=== PATIENT | female | born 1945 | race Caucasian/White ===

== ENCOUNTER 2018-09-08 11:20 | Day surgery (SDC) | payer MEDICARE, OTHER, SELFPAY ==
[2018-09-08] MEDS: PROPARACAINE 0.5% OPHTH SOL 2 DROPS EYE-OP (11:47)
[2018-09-08 11:52] VITALS: BP 198/87; PULSE 60; RESP 15; TEMP 36.4; O2SAT 100; BMI 32.8
[2018-09-08] MEDS: CATARACT EYE COMPOUND (10 DROPS/SYRINGE) 3 DROPS EYE-OP (11:55)
--- NOTE | 2018-09-08 12:04 | SUR.PREOP ---
Recieved report from Elodia Willingham RN and assumed care of Ms. Contreras.
--- NOTE | 2018-09-08 12:17 | P.OP_ITS ---
Operative Date/Time/Diagnoses Pre-op diagnosis: Nuclear cataract right eye Procedure & Clinicians Procedure: Cataract Surgery Same procedure as scheduled: Yes Surgeon: Je Au Anesthesia Type: MAC +/- and Sedation Operative Notes Procedure in detail: Patient brought to the operating suite. Tetracaine drops placed in the right eye. Patient was prepped and draped in sterile manner. Wire lid speculum was placed in the eye. Betadine drops were placed on the eye. This was irrigated. Lidocaine jelly was placed on the eye. A paracentesis port was created with a side-port blade. 0.1 mL 1% preservative free lidocaine was injected into the anterior chamber. The anterior chamber was deepened with viscoelastic. 2.6 mm keratome was used to create a temporal clear corneal incision. Cystotome and Utrata forceps were used to create continuous tear capsulorrhexis. Balanced salt solution was used to hydro dissect the nucleus. The phacoemulsification handpiece was inserted and the nucleus was removed using the stop and chop technique. The irrigation aspiration handpiece was inserted and the remaining cortex was removed. Anterior chamber was deepened with viscoelastic. An Lamb ZCB00 intraocular lens with a power of 22.0 was injected into the capsular bag. Irrigation aspiration handpiece was inserted and the remaining viscoelastic was removed. Incision was hydrated with balanced salt solution and found to be leak free with pressure with Weck- Ally sponges. 0.1 mL Vigamox injected anterior chamber. 0.3 mL Kenalog 10 mg was injected subconjunctivally. Lid speculum was removed. The patient left the operating room in excellent condition. Complications: none Condition: stable Disposition: same day surgery
--- NOTE | 2018-09-08 12:17 | P.OP.PRE_ITS ---
Pre-operative Note Interval Note Changes: No
--- NOTE | 2018-09-08 12:17 | PM.PREOP ---
Pre-operative Note Interval Note Changes: No
--- NOTE | 2018-09-08 12:21 | SUR.OPER ---
Supine on eye stretcher, head on extension cradle secured with tape. Arms tucked at sides with blanket. Pillow under knees.
[2018-09-08] MEDS: TRIAMCINOLONE 50 MG/5 ML VIAL INJ (12:26)
[2018-09-08] MEDS: PHENYLEPHRINE/LIDOCAINE VIAL (OR) 0.2 ML EYE-OP (12:26)
[2018-09-08] MEDS: MOXIFLOXACIN OPHTH DROPS 3 ML BOTTLE 2 DROPS INJ (12:26)
[2018-09-08] MEDS: LIDOCAINE JELLY 2% 5 ML 1 APPLIC TOP (12:27)
[2018-09-08] MEDS: CHONDROIDTIN/SOD HYALURONATE 1.05 ML SYRINGE INTRAOCULA (12:27)
[2018-09-08] MEDS: BALANCED SALT IRRIG SOLN NO.2 500 ML, EPINEPHrine 1 MG IRR (12:27)
[2018-09-08] MEDS: TETRACAINE 0.5% OPHTH DROPS 15 ML 2 DROPS EYE-RIGHT (12:27)
[2018-09-08 12:50] VITALS: BP 161/81; PULSE 52; RESP 18; TEMP 36.1; O2SAT 99
== END 2018-09-08 12:56 ==
LOC: OR 11:25
PROVIDERS: PCP Family Medicine; Visit Provider Ophthalmology
DX: H25.11 Age-related nuclear cataract, right eye (principal)
CPT/HCPCS: J0171; J2250; J3010; J3301

== ENCOUNTER 2018-10-06 10:26 | Day surgery (SDC) | payer MEDICARE, OTHER, SELFPAY ==
[2018-10-06] MEDS: PROPARACAINE 0.5% OPHTH SOL 2 DROPS EYE-OP (10:48)
[2018-10-06] MEDS: CATARACT EYE COMPOUND (10 DROPS/SYRINGE) 3 DROPS EYE-OP (10:55)
[2018-10-06 10:56] VITALS: BMI 33.3
[2018-10-06 11:11] VITALS: BP 150/76; PULSE 74; RESP 15; TEMP 36; O2SAT 100
--- NOTE | 2018-10-06 11:56 | PM.PREOP ---
Pre-operative Note Interval Note Changes: No
--- NOTE | 2018-10-06 11:56 | P.OP.PRE_ITS ---
Pre-operative Note Interval Note Changes: No
--- NOTE | 2018-10-06 11:59 | P.OP_ITS ---
Operative Date/Time/Diagnoses Pre-op diagnosis: Nuclear Cataract Left eye Post-op diagnosis: same Procedure & Clinicians Surgeon: Je Au Anesthesia Type: MAC +/- and Sedation Operative Notes Procedure in detail: Patient brought to the operating suite. Tetracaine drops placed in the left eye. Patient was prepped and draped in sterile manner. Wire lid speculum was placed in the eye. Betadine drops were placed on the eye. This was irrigated. Lidocaine jelly was placed on the eye. A paracentesis port was created with a side-port blade. 0.1 mL 1% preservative free lidocaine was injected into the anterior chamber. The anterior chamber was deepened with viscoelastic. 2.6 mm keratome was used to create a temporal clear corneal incision. Cystotome and Utrata forceps were used to create continuous tear capsulorrhexis. Balanced salt solution was used to hydro dissect the nucleus. The phacoemulsification handpiece was inserted and the nucleus was removed using the stop and chop technique. The irrigation aspiration handpiece was inserted and the remaining cortex was removed. Anterior chamber was deepened with viscoelastic. An Lamb ZCB00 intraocular lens with a power of 21.5 was injected into the capsular bag. Irrigation aspiration handpiece was inserted and the remaining viscoelastic was removed. Incision was hydrated with balanced salt solution and found to be leak free with pressure with Weck- Ally sponges. 0.1 mL Vigamox injected anterior chamber. 0.3 mL Kenalog 10 mg was injected subconjunctivally. Lid speculum was removed. The patient left the operating room in excellent condition. Complications: none Condition: stable Disposition: same day surgery
--- NOTE | 2018-10-06 12:12 | SUR.OPER ---
Supine on eye stretcher, head on extension cradle secured with tape. Arms tucked at sides with blanket. Pillow under knees.
[2018-10-06] MEDS: CHONDROIDTIN/SOD HYALURONATE 1.05 ML SYRINGE INTRAOCULA (12:14)
[2018-10-06] MEDS: LIDOCAINE JELLY 2% 5 ML 1 APPLIC TOP (12:14)
[2018-10-06] MEDS: MOXIFLOXACIN OPHTH DROPS 3 ML BOTTLE 2 DROPS INJ (12:14)
[2018-10-06] MEDS: TETRACAINE 0.5% OPHTH DROPS 15 ML 2 DROPS EYE-LEFT (12:15)
[2018-10-06] MEDS: TRIAMCINOLONE 50 MG/5 ML VIAL INJ (12:15)
[2018-10-06] MEDS: PHENYLEPHRINE/LIDOCAINE VIAL (OR) 0.2 ML EYE-OP (12:15)
[2018-10-06] MEDS: BALANCED SALT IRRIG SOLN NO.2 500 ML, EPINEPHrine 1 MG IRR (12:16)
[2018-10-06 12:24] VITALS: BP 147/87; PULSE 52; RESP 16; TEMP 36.2; O2SAT 100
[2018-10-06] MEDS: ACETAMINOPHEN 325 MG TABLET PO ×2 (12:33→12:40)
== END 2018-10-06 12:42 | disposition home or self-care (01) ==
PROVIDERS: PCP Family Medicine; Visit Provider Ophthalmology
DX: H25.12 Age-related nuclear cataract, left eye (principal); G40.909 Epilepsy, unspecified, not intractable, without status epilepticus
CPT/HCPCS: J0171; J2250; J3010; J3301

== ENCOUNTER 2018-10-08 17:41 | Emergency (ER) | payer MEDICARE, OTHER, SELFPAY ==
[2018-10-08 17:50] VITALS: PULSE 65; RESP 14; TEMP 36.4; O2SAT 100; BMI 33.3
--- NOTE | 2018-10-08 17:54 | ED.SOB ---
HPI - SOB/Dyspnea <Smitha Vee PA-C - Last Filed: 10/08/18 21:09> General Chief Complaint: Shortness of Breath/Dyspnea Stated Complaint: SOB, Dizzy, Faint Time Seen by Provider: 10/08/18 17:54 Source: patient and family Mode of arrival: ambulatory Limitations: no limitations History of Present Illness this 73-year-old female comes in due to worsening dyspnea. She states she has had intermittent shortness of breath, which she describes as an air hunger sensation for about 2 months, it has been more persistent in the last week. She states that in addition to persistent air hunger today, she also feels a fullness along her chest and lower rib area and pressure in the diaphragm area. She denies any hanh chest pain. She denies any wheezing or hanh shortness of breath. She states that she has been going about her usual activities despite the symptoms for the last couple of months. She states that she has a long history of neuropathic cough and she does feel like this has been worse in the last couple of months, still a dry cough. She denies any fever, chills, sweats. She denies any wheeze. She denies any nausea vomiting, or hanh abdominal pain. She states that she has had a little bit of right lower extremity edema since age 24 when she is on her feet for a while, and that is unchanged. She denies any pain in her arms or legs, nor jaw pain. she states that her losartan was changed to b.i.d. from 1 dose daily about 10 days ago and she does think this might correlate with some of the symptoms. She denies any other medication changes Related Data Home Medications Medication Instructions Recorded Confirmed cetirizine [Zyrtec] 20 mg PO BID 09/08/18 10/08/18 clonidine HCl 0.1 mg PO BID 09/08/18 10/08/18 fluticasone [Flonase Allergy 1 spray INTRANASAL DAILY 09/08/18 10/08/18 Relief] calcium carbonate [Calcium 500] 500 mg PO TID 10/06/18 10/08/18 losartan 50 mg PO BID 10/06/18 10/08/18 multivitamin 1 cap PO QAM 10/06/18 10/06/18 oxybutynin chloride 2.5 mg PO BID 10/06/18 10/08/18 carbamazepine [Epitol] 200 mg PO QID 10/08/18 10/08/18 Allergies Allergy/AdvReac Type Severity Reaction Status Date / Time primidone [From Mysoline] Allergy Mild Rash Verified 10/08/18 17:50 Review of Systems <TRAE Allen Last Filed: 10/08/18 21:09> Review of Systems All systems reviewed & are unremarkable except as noted in HPI and below PFSH <TRAE Allen Last Filed: 10/08/18 21:09> Comment: never smoker Exam <TRAE Allen Last Filed: 10/08/18 21:09> Narrative Exam Narrative: GENERAL APPEARANCE: Patient sitting comfortably, in no distress. HEENT: PERRL, EOMI, normal oropharynx with a little PND NECK/THYROID: Neck supple, no JVD, no masses. LUNGS: Clear to auscultation bilaterally. CHEST: No tenderness to palpation HEART: Regular rate and rhythm without murmur, normal S1, S2, no S3 or S4. ABDOMEN: Soft, NT, ND, + BS x 4 quadrants EXTREMITIES: No cyanosis or edema. No calf tenderness NEUROLOGIC: Alert and oriented, normal speech, gait and coordination. Initial Vital Signs Initial Vital Signs: Vital Signs Temperature 97.5 F L 10/08/18 17:50 Pulse Rate 65 10/08/18 17:50 Respiratory Rate 14 10/08/18 17:50 Pulse Oximetry 100 10/08/18 17:50 <Vikash Martin DO - Last Filed: 10/08/18 23:14> Initial Vital Signs Initial Vital Signs: Vital Signs Temperature 97.5 F L 10/08/18 17:50 Pulse Rate 65 10/08/18 17:50 Respiratory Rate 14 10/08/18 17:50 Pulse Oximetry 100 10/08/18 17:50 Scores <TRAE Allen Last Filed: 10/08/18 21:09> HEART Score Heart Score history: Slightly Suspicious Heart Score EKG: Normal Heart Score Age: > or = 65 years old Heart Score risk factors: 1-2 risk factors Heart Score troponin: < or = to normal limit Heart Score Total: 3 Course <TRAE Allen Last Filed: 10/08/18 21:09> Additional Information: patient was feeling comfortable during her stay. Reviewed findings with Dr. Martin as she has a heart risk score of due to age and history of hyperlipidemia and hypertension. She has had gradual onset of symptoms, worsening in the last week shortly after dose change in her losartan. This also correlates with increase in her chronic cough. He agreed reasonable to discharge patient for follow-up with her PCP given lack of acute findings on workup today. she will call PCP 1st thing tomorrow for follow-up and return in the interim if any worsening symptoms. She will cut her losartan in half while waiting for follow-up appointment. Advised to discuss with PCP whether to do cardiac stress test given her risk factors Orders Ordered: ED Orders 10/08/18 17:53 EKG-12 Lead Stat 10/08/18 18:00 B Type Natriuretic Peptide Stat Basic Metabolic Panel Stat Complete Blood Count AUTO DIFF Stat D Dimer Stat Troponin & CK Cardiac Panel Stat 10/08/18 18:05 XR chest 2V Stat Discontinued Medications Albuterol (Ventolin) 2.5 mg INH NOW ONE Stop: 10/08/18 18:06 Last Admin: 10/08/18 18:08 Dose: 2.5 mg Vital Signs - 8 hr 10/08/18 17:50 10/08/18 18:08 10/08/18 19:28 Temperature 97.5 F L Pulse Rate 65 60 66 Respiratory Rate 14 17 16 Blood Pressure Blood Pressure [Right Arm] 183/76 H Pulse Oximetry 100 97 100 10/08/18 20:08 Temperature Pulse Rate 62 Respiratory Rate 15 Blood Pressure 182/76 H Blood Pressure [Right Arm] Pulse Oximetry 100 <Vikash Martin, - Last Filed: 10/08/18 23:14> Orders Ordered: ED Orders 10/08/18 17:53 EKG-12 Lead Stat 10/08/18 18:00 B Type Natriuretic Peptide Stat Basic Metabolic Panel Stat Complete Blood Count AUTO DIFF Stat D Dimer Stat Troponin & CK Cardiac Panel Stat 10/08/18 18:05 XR chest 2V Stat Discontinued Medications Albuterol (Ventolin) 2.5 mg INH NOW ONE Stop: 10/08/18 18:06 Last Admin: 10/08/18 18:08 Dose: 2.5 mg Vital Signs - 8 hr 10/08/18 17:50 10/08/18 18:08 10/08/18 19:28 Temperature 97.5 F L Pulse Rate 65 60 66 Respiratory Rate 14 17 16 Blood Pressure Blood Pressure [Right Arm] 183/76 H Pulse Oximetry 100 97 100 10/08/18 20:08 Temperature Pulse Rate 62 Respiratory Rate 15 Blood Pressure 182/76 H Blood Pressure [Right Arm] Pulse Oximetry 100 MDM - SOB/Dyspnea <Smitha Vee PA-C - Last Filed: 10/08/18 21:09> Lab Data Attestation: I reviewed the patient's lab results. Result diagrams: 10/08/18 18:00 10/08/18 18:00 Lab Results 10/08/18 10/08/18 10/08/18 Range/Units 18:00 18:00 18:00 WBC 6.9 (4.5-11.0) X10^3/uL RBC 4.40 (4.0-5.2) X10^6/uL Hgb 14.2 (12.0-16.0) g/dL Hct 41.2 (36-46) % MCV 93.6 (80-100) fL MCH 32.3 (26-34) PG MCHC 34.5 (30-36) % RDW 12.7 (11.6-14.8) % Plt Count 228 (150-400) X10^3/uL Neut % (Auto) 51.9 (50-75) % Lymph % (Auto) 36.9 (25-40) % [place] % (Auto) 8.7 (3-14) % Eos % (Auto) 1.8 L (2-4) % Baso % (Auto) 0.7 (0-2) % Neut # (Auto) 3600 (2301-8803) /uL D-Dimer < 200 (<230) ng/mL Sodium 130 L (137-145) mmol/L Potassium 4.0 (3.4-5.1) mmol/L Chloride 95 L (98-107) mmol/L Carbon Dioxide 24 (22-32) mmol/L BUN 19 H (7-17) mg/dL Creatinine 0.60 (0.52-1.04) mg/dL Estimated GFR > 60.0 (>60) mL/min BUN/Creatinine Ratio 31.7 H (6-22) Glucose 105 (80-110) mg/dL Calcium 9.8 (8.4-10.2) mg/dL Total Creatine Kinase 55 (30-135) U/L CK-MB (CK-2) TNP CK-MB (CK-2) Rel Index TNP Troponin I 0.013 (0.01-0.034) ng/mL B-Natriuretic Peptide 130.0 H (<100) Urine Dip Bedside Urine Glucose Negative Bedside Urine Bilirubin - Negative Bedside Urine Ketone + 15 Urine Specific [place] 1.015 Bedside Urine Occult Blood - Negative Bedside Urine pH 7.0 Bedside Urine Protein - Negative Bedside Urine Urobilinogen - Negative Bedside Urine Nitrite - Negative Bedside Urine Leukocytes - Negative Esterase Imaging Data Chest x-ray: Radiologist's impression: [address] [address] XRay Report Signed Patient: Junie Contreras LMR#: [id number] : 5Acct:[id number] Age/Sex: 73 / FDate of Service: 10/08/18 Loc: ED Accession Number: [id number] Procedure: XR chest 2V Ordering Provider: Smitha Vee P.A-C PROCEDURE: XR CHEST 2V INDICATIONS: dyspnea, cough TECHNIQUE: 2 views of the chest were acquired. COMPARISON: None. FINDINGS: Surgical changes and devices: None. Lungs and pleura: No pleural effusions or pneumothorax. Lungs are clear. Mediastinum: Mediastinal contours are normal. Heart size is normal. Bones and chest wall: No suspicious bony abnormalities. Soft tissues appear unremarkable. IMPRESSION: No acute cardiopulmonary disease process. Dictated by: Adelita Pennington MD, PhD on 10/08/2018 at 19:06 Approved by: Adelita Pennington MD, PhD on 10/08/2018 at 19:06 ECG Data Attestation: I personally reviewed and interpreted this ECG as follows: ( sinus bradycardia with rate 59, first-degree AV block, normal axis) <Vikash Martin DO - Last Filed: 10/08/18 23:14> Lab Data Lab Results 10/08/18 10/08/18 10/08/18 Range/Units 18:00 18:00 18:00 WBC 6.9 (4.5-11.0) X10^3/uL RBC 4.40 (4.0-5.2) X10^6/uL Hgb 14.2 (12.0-16.0) g/dL Hct 41.2 (36-46) % MCV 93.6 (80-100) fL MCH 32.3 (26-34) PG MCHC 34.5 (30-36) % RDW 12.7 (11.6-14.8) % Plt Count 228 (150-400) X10^3/uL Neut % (Auto) 51.9 (50-75) % Lymph % (Auto) 36.9 (25-40) % [place] % (Auto) 8.7 (3-14) % Eos % (Auto) 1.8 L (2-4) % Baso % (Auto) 0.7 (0-2) % Neut # (Auto) 3600 (6070-7403) /uL D-Dimer < 200 (<230) ng/mL Sodium 130 L (137-145) mmol/L Potassium 4.0 (3.4-5.1) mmol/L Chloride 95 L (98-107) mmol/L Carbon Dioxide 24 (22-32) mmol/L BUN 19 H (7-17) mg/dL Creatinine 0.60 (0.52-1.04) mg/dL Estimated GFR > 60.0 (>60) mL/min BUN/Creatinine Ratio 31.7 H (6-22) Glucose 105 (80-110) mg/dL Calcium 9.8 (8.4-10.2) mg/dL Total Creatine Kinase 55 (30-135) U/L CK-MB (CK-2) TNP CK-MB (CK-2) Rel Index TNP Troponin I 0.013 (0.01-0.034) ng/mL B-Natriuretic Peptide 130.0 H (<100) Urine Dip Bedside Urine Glucose Negative Bedside Urine Bilirubin - Negative Bedside Urine Ketone + 15 Urine Specific [place] 1.015 Bedside Urine Occult Blood - Negative Bedside Urine pH 7.0 Bedside Urine Protein - Negative Bedside Urine Urobilinogen - Negative Bedside Urine Nitrite - Negative Bedside Urine Leukocytes - Negative Esterase Discharge Plan Departure Patient Disposition: Home Clinical Impression: Dyspnea and respiratory abnormalities, Chest discomfort Discharge Date/Time: 10/08/18 20:10 Interventions: ED Discharge Assessment Last Done: 10/08/18 20:08 Instructions: DI for Shortness of Breath Activity Restrictions/Additional Instructions: your testing today does not show any acute abnormality and your exam findings are reassuring as well. You should return as we talked about if you have any acutely worsening symptoms, or new symptoms that concern you. since her chronic cough has been worse as well and this started in the setting of increasing your losartan, please do not take this tonight. Take 1/2 tab tomorrow morning and tomorrow night instead of a full tab. continue your Flonase, and you may also wish to add an [id number] antihistamine such as Zyrtec if you have not been taking it recently as this may help with your postnasal drip and cough. Please call your PCP office 1st thing in the morning and let them know that you were seen in the emergency department for chest pain and breathing difficulties and we would like to have the follow-up with them preferably tomorrow. Please discuss whether to arrange a stress test for your heart given the risk factors that you have including high blood pressure and cholesterol. Prescriptions: No Action fluticasone [Flonase Allergy Relief] 50 mcg/actuation [place],Suspension 1 spray INTRANASAL DAILY RF: 0 cetirizine [Zyrtec] 10 mg Capsule 20 mg PO BID RF: 0 clonidine HCl 0.1 mg Tablet Extended Release 12 Hr 0.1 mg PO BID RF: 0 losartan 50 mg Tablet 50 mg PO BID RF: 0 calcium carbonate [Calcium 500] 500 mg calcium (1,250 mg) Tablet 500 mg PO TID RF: 0 oxybutynin chloride 5 mg Tablet 2.5 mg PO BID RF: 0 multivitamin Capsule 1 cap PO QAM RF: 0 carbamazepine [Epitol] 200 mg tablet 200 mg PO QID RF: 0 Referrals: Vikash Colindres MD [Primary Care Provider] - <Vikash Martin DO - Last Filed: 10/08/18 23:14> [facility]: I was available for consultation during this patient's emergency department encounter
--- NOTE | 2018-10-08 18:05 | DI.RAD.S_ITS ---
PROCEDURE: XR CHEST 2V INDICATIONS: dyspnea, cough TECHNIQUE: 2 views of the chest were acquired. COMPARISON: None. FINDINGS: Surgical changes and devices: None. Lungs and pleura: No pleural effusions or pneumothorax. Lungs are clear. Mediastinum: Mediastinal contours are normal. Heart size is normal. Bones and chest wall: No suspicious bony abnormalities. Soft tissues appear unremarkable. IMPRESSION: No acute cardiopulmonary disease process. Dictated by: Adelita Pennington MD, PhD on 10/08/2018 at 19:06 Approved by: Adelita Pennington MD, PhD on 10/08/2018 at 19:06
[2018-10-08 18:07] LABS: Add Manual Diff / Slide Review NO; Basophils Percent Auto 0.7 % (0-2); Eosinophils Percent Auto 1.8 % (2-4); Hematocrit 41.2 % (36-46); Hemoglobin 14.2 g/dL (12.0-16.0); Lymphocytes Percent Auto 36.9 % (25-40); Mean Corpuscular HGB Conc 34.5 % (30-36); Mean Corpuscular Hemoglobin 32.3 PG (26-34); Mean Corpuscular Volume 93.6 fL (80-100); Monocytes Percent Auto 8.7 % (3-14); Neutrophils Absolute Auto 3600 /uL (3000-5900); Neutrophils Percent Auto 51.9 % (50-75); Platelet Count 228 X10^3/uL (150-400); Red Cell Distribution Width 12.7 % (11.6-14.8); White Blood Cell Count 6.9 X10^3/uL (4.5-11.0)
[2018-10-08 18:08] VITALS: PULSE 60; RESP 17; O2SAT 97
[2018-10-08] MEDS: ALBUTEROL 2.5 MG/3 ML NEB (ADULT) INH (18:08)
--- NOTE | 2018-10-08 18:14 | ED_ITS ---
HPI - SOB/Dyspnea <Smitha Vee PA-C - Last Filed: 10/08/18 21:09> General Chief Complaint: Shortness of Breath/Dyspnea Stated Complaint: SOB, Dizzy, Faint Time Seen by Provider: 10/08/18 17:54 Source: patient and family Mode of arrival: ambulatory Limitations: no limitations History of Present Illness this 73-year-old female comes in due to worsening dyspnea. She states she has had intermittent shortness of breath, which she describes as an air hunger sensation for about 2 months, it has been more persistent in the last week. She states that in addition to persistent air hunger today, she also feels a fullness along her chest and lower rib area and pressure in the diaphragm area. She denies any hanh chest pain. She denies any wheezing or hanh shortness of breath. She states that she has been going about her usual activities despite the symptoms for the last couple of months. She states that she has a long history of neuropathic cough and she does feel like this has been worse in the last couple of months, still a dry cough. She denies any fever, chills, sweats. She denies any wheeze. She denies any nausea vomiting, or hanh abdominal pain. She states that she has had a little bit of right lower extremity edema since age 24 when she is on her feet for a while, and that is unchanged. She denies any pain in her arms or legs, nor jaw pain. she states that her losartan was changed to b.i.d. from 1 dose daily about 10 days ago and she does think this might correlate with some of the symptoms. She denies any other medication changes Related Data Home Medications Medication Instructions Recorded Confirmed cetirizine [Zyrtec] 20 mg PO BID 09/08/18 10/08/18 clonidine HCl 0.1 mg PO BID 09/08/18 10/08/18 fluticasone [Flonase Allergy 1 spray INTRANASAL DAILY 09/08/18 10/08/18 Relief] calcium carbonate [Calcium 500] 500 mg PO TID 10/06/18 10/08/18 losartan 50 mg PO BID 10/06/18 10/08/18 multivitamin 1 cap PO QAM 10/06/18 10/06/18 oxybutynin chloride 2.5 mg PO BID 10/06/18 10/08/18 carbamazepine [Epitol] 200 mg PO QID 10/08/18 10/08/18 Allergies Allergy/AdvReac Type Severity Reaction Status Date / Time primidone [From Mysoline] Allergy Mild Rash Verified 10/08/18 17:50 Review of Systems <TRAE Allen Last Filed: 10/08/18 21:09> Review of Systems All systems reviewed & are unremarkable except as noted in HPI and below PFSH <TRAE Allen Last Filed: 10/08/18 21:09> Comment: never smoker Exam <TRAE Allen Last Filed: 10/08/18 21:09> Narrative Exam Narrative: GENERAL APPEARANCE: Patient sitting comfortably, in no distress. HEENT: PERRL, EOMI, normal oropharynx with a little PND NECK/THYROID: Neck supple, no JVD, no masses. LUNGS: Clear to auscultation bilaterally. CHEST: No tenderness to palpation HEART: Regular rate and rhythm without murmur, normal S1, S2, no S3 or S4. ABDOMEN: Soft, NT, ND, + BS x 4 quadrants EXTREMITIES: No cyanosis or edema. No calf tenderness NEUROLOGIC: Alert and oriented, normal speech, gait and coordination. Initial Vital Signs Initial Vital Signs: Vital Signs Temperature 97.5 F L 10/08/18 17:50 Pulse Rate 65 10/08/18 17:50 Respiratory Rate 14 10/08/18 17:50 Pulse Oximetry 100 10/08/18 17:50 <Vikash Martin DO - Last Filed: 10/08/18 23:14> Initial Vital Signs Initial Vital Signs: Vital Signs Temperature 97.5 F L 10/08/18 17:50 Pulse Rate 65 10/08/18 17:50 Respiratory Rate 14 10/08/18 17:50 Pulse Oximetry 100 10/08/18 17:50 Scores <TRAE Allen Last Filed: 10/08/18 21:09> HEART Score Heart Score history: Slightly Suspicious Heart Score EKG: Normal Heart Score Age: > or = 65 years old Heart Score risk factors: 1-2 risk factors Heart Score troponin: < or = to normal limit Heart Score Total: 3 Course <TRAE Allen Last Filed: 10/08/18 21:09> Additional Information: patient was feeling comfortable during her stay. Reviewed findings with Dr. Martin as she has a heart risk score of due to age and history of hyperlipidemia and hypertension. She has had gradual onset of symptoms, worsening in the last week shortly after dose change in her losartan. This also correlates with increase in her chronic cough. He agreed reasonable to discharge patient for follow-up with her PCP given lack of acute findings on workup today. she will call PCP 1st thing tomorrow for follow-up and return in the interim if any worsening symptoms. She will cut her losartan in half while waiting for follow-up appointment. Advised to discuss with PCP whether to do cardiac stress test given her risk factors Orders Ordered: ED Orders 10/08/18 17:53 EKG-12 Lead Stat 10/08/18 18:00 B Type Natriuretic Peptide Stat Basic Metabolic Panel Stat Complete Blood Count AUTO DIFF Stat D Dimer Stat Troponin & CK Cardiac Panel Stat 10/08/18 18:05 XR chest 2V Stat Discontinued Medications Albuterol (Ventolin) 2.5 mg INH NOW ONE Stop: 10/08/18 18:06 Last Admin: 10/08/18 18:08 Dose: 2.5 mg Vital Signs - 8 hr 10/08/18 17:50 10/08/18 18:08 10/08/18 19:28 Temperature 97.5 F L Pulse Rate 65 60 66 Respiratory Rate 14 17 16 Blood Pressure Blood Pressure [Right Arm] 183/76 H Pulse Oximetry 100 97 100 10/08/18 20:08 Temperature Pulse Rate 62 Respiratory Rate 15 Blood Pressure 182/76 H Blood Pressure [Right Arm] Pulse Oximetry 100 <Vikash Martin, - Last Filed: 10/08/18 23:14> Orders Ordered: ED Orders 10/08/18 17:53 EKG-12 Lead Stat 10/08/18 18:00 B Type Natriuretic Peptide Stat Basic Metabolic Panel Stat Complete Blood Count AUTO DIFF Stat D Dimer Stat Troponin & CK Cardiac Panel Stat 10/08/18 18:05 XR chest 2V Stat Discontinued Medications Albuterol (Ventolin) 2.5 mg INH NOW ONE Stop: 10/08/18 18:06 Last Admin: 10/08/18 18:08 Dose: 2.5 mg Vital Signs - 8 hr 10/08/18 17:50 10/08/18 18:08 10/08/18 19:28 Temperature 97.5 F L Pulse Rate 65 60 66 Respiratory Rate 14 17 16 Blood Pressure Blood Pressure [Right Arm] 183/76 H Pulse Oximetry 100 97 100 10/08/18 20:08 Temperature Pulse Rate 62 Respiratory Rate 15 Blood Pressure 182/76 H Blood Pressure [Right Arm] Pulse Oximetry 100 MDM - SOB/Dyspnea <Smitha Vee PA-C - Last Filed: 10/08/18 21:09> Lab Data Attestation: I reviewed the patient's lab results. Result diagrams: 10/08/18 18:00 10/08/18 18:00 Lab Results 10/08/18 10/08/18 10/08/18 Range/Units 18:00 18:00 18:00 WBC 6.9 (4.5-11.0) X10^3/uL RBC 4.40 (4.0-5.2) X10^6/uL Hgb 14.2 (12.0-16.0) g/dL Hct 41.2 (36-46) % MCV 93.6 (80-100) fL MCH 32.3 (26-34) PG MCHC 34.5 (30-36) % RDW 12.7 (11.6-14.8) % Plt Count 228 (150-400) X10^3/uL Neut % (Auto) 51.9 (50-75) % Lymph % (Auto) 36.9 (25-40) % Allen % (Auto) 8.7 (3-14) % Eos % (Auto) 1.8 L (2-4) % Baso % (Auto) 0.7 (0-2) % Neut # (Auto) 3600 (9589-0138) /uL D-Dimer < 200 (<230) ng/mL Sodium 130 L (137-145) mmol/L Potassium 4.0 (3.4-5.1) mmol/L Chloride 95 L (98-107) mmol/L Carbon Dioxide 24 (22-32) mmol/L BUN 19 H (7-17) mg/dL Creatinine 0.60 (0.52-1.04) mg/dL Estimated GFR > 60.0 (>60) mL/min BUN/Creatinine Ratio 31.7 H (6-22) Glucose 105 (80-110) mg/dL Calcium 9.8 (8.4-10.2) mg/dL Total Creatine Kinase 55 (30-135) U/L CK-MB (CK-2) TNP CK-MB (CK-2) Rel Index TNP Troponin I 0.013 (0.01-0.034) ng/mL B-Natriuretic Peptide 130.0 H (<100) Urine Dip Bedside Urine Glucose Negative Bedside Urine Bilirubin - Negative Bedside Urine Ketone + 15 Urine Specific [place] 1.015 Bedside Urine Occult Blood - Negative Bedside Urine pH 7.0 Bedside Urine Protein - Negative Bedside Urine Urobilinogen - Negative Bedside Urine Nitrite - Negative Bedside Urine Leukocytes - Negative Esterase Imaging Data Chest x-ray: Radiologist's impression: [address] [address] XRay Report Signed Patient: Junie Contreras LMR#: [id number] : 5Acct:[id number] Age/Sex: 73 / FDate of Service: 10/08/18 Loc: ED Accession Number: [id number] Procedure: XR chest 2V Ordering Provider: Smitha Vee P.A-C PROCEDURE: XR CHEST 2V INDICATIONS: dyspnea, cough TECHNIQUE: 2 views of the chest were acquired. COMPARISON: None. FINDINGS: Surgical changes and devices: None. Lungs and pleura: No pleural effusions or pneumothorax. Lungs are clear. Mediastinum: Mediastinal contours are normal. Heart size is normal. Bones and chest wall: No suspicious bony abnormalities. Soft tissues appear unremarkable. IMPRESSION: No acute cardiopulmonary disease process. Dictated by: Adelita Pennington MD, PhD on 10/08/2018 at 19:06 Approved by: Adelita Pennington MD, PhD on 10/08/2018 at 19:06 ECG Data Attestation: I personally reviewed and interpreted this ECG as follows: ( sinus bradycardia with rate 59, first-degree AV block, normal axis) <Vikash Martin DO - Last Filed: 10/08/18 23:14> Lab Data Lab Results 10/08/18 10/08/18 10/08/18 Range/Units 18:00 18:00 18:00 WBC 6.9 (4.5-11.0) X10^3/uL RBC 4.40 (4.0-5.2) X10^6/uL Hgb 14.2 (12.0-16.0) g/dL Hct 41.2 (36-46) % MCV 93.6 (80-100) fL MCH 32.3 (26-34) PG MCHC 34.5 (30-36) % RDW 12.7 (11.6-14.8) % Plt Count 228 (150-400) X10^3/uL Neut % (Auto) 51.9 (50-75) % Lymph % (Auto) 36.9 (25-40) % Allen % (Auto) 8.7 (3-14) % Eos % (Auto) 1.8 L (2-4) % Baso % (Auto) 0.7 (0-2) % Neut # (Auto) 3600 (9851-5029) /uL D-Dimer < 200 (<230) ng/mL Sodium 130 L (137-145) mmol/L Potassium 4.0 (3.4-5.1) mmol/L Chloride 95 L (98-107) mmol/L Carbon Dioxide 24 (22-32) mmol/L BUN 19 H (7-17) mg/dL Creatinine 0.60 (0.52-1.04) mg/dL Estimated GFR > 60.0 (>60) mL/min BUN/Creatinine Ratio 31.7 H (6-22) Glucose 105 (80-110) mg/dL Calcium 9.8 (8.4-10.2) mg/dL Total Creatine Kinase 55 (30-135) U/L CK-MB (CK-2) TNP CK-MB (CK-2) Rel Index TNP Troponin I 0.013 (0.01-0.034) ng/mL B-Natriuretic Peptide 130.0 H (<100) Urine Dip Bedside Urine Glucose Negative Bedside Urine Bilirubin - Negative Bedside Urine Ketone + 15 Urine Specific [place] 1.015 Bedside Urine Occult Blood - Negative Bedside Urine pH 7.0 Bedside Urine Protein - Negative Bedside Urine Urobilinogen - Negative Bedside Urine Nitrite - Negative Bedside Urine Leukocytes - Negative Esterase Discharge Plan Departure Patient Disposition: Home Clinical Impression: Dyspnea and respiratory abnormalities, Chest discomfort Discharge Date/Time: 10/08/18 20:10 Interventions: ED Discharge Assessment Last Done: 10/08/18 20:08 Instructions: DI for Shortness of Breath Activity Restrictions/Additional Instructions: your testing today does not show any acute abnormality and your exam findings are reassuring as well. You should return as we talked about if you have any acutely worsening symptoms, or new symptoms that concern you. since her chronic cough has been worse as well and this started in the setting of increasing your losartan, please do not take this tonight. Take 1/2 tab tomorrow morning and tomorrow night instead of a full tab. continue your Flonase, and you may also wish to add an [id number] antihistamine such as Zyrtec if you have not been taking it recently as this may help with your postnasal drip and cough. Please call your PCP office 1st thing in the morning and let them know that you were seen in the emergency department for chest pain and breathing difficulties and we would like to have the follow-up with them preferably tomorrow. Please discuss whether to arrange a stress test for your heart given the risk factors that you have including high blood pressure and cholesterol. Prescriptions: No Action fluticasone [Flonase Allergy Relief] 50 mcg/actuation [place],Suspension 1 spray INTRANASAL DAILY RF: 0 cetirizine [Zyrtec] 10 mg Capsule 20 mg PO BID RF: 0 clonidine HCl 0.1 mg Tablet Extended Release 12 Hr 0.1 mg PO BID RF: 0 losartan 50 mg Tablet 50 mg PO BID RF: 0 calcium carbonate [Calcium 500] 500 mg calcium (1,250 mg) Tablet 500 mg PO TID RF: 0 oxybutynin chloride 5 mg Tablet 2.5 mg PO BID RF: 0 multivitamin Capsule 1 cap PO QAM RF: 0 carbamazepine [Epitol] 200 mg tablet 200 mg PO QID RF: 0 Referrals: Vikash Colindres MD [Primary Care Provider] - <Vikash Martin DO - Last Filed: 10/08/18 23:14> [facility]ign [facility] Att[facility]: I was available for consultation during this patient's emergency department encounter
[2018-10-08 18:17] LABS: D Dimer < 200 ng/mL (<230)
[2018-10-08 18:18] LABS: BUN Creatinine Ratio 31.7 (6-22); Blood Urea Nitrogen 19 mg/dL (7-17); Calcium 9.8 mg/dL (8.4-10.2); Carbon Dioxide 24 mmol/L (22-32); Chloride 95 mmol/L (98-107); Creatine Kinase 55 U/L (30-135); Estimated Glomerular Filt Rate > 60.0 mL/min (>60); Glucose 105 mg/dL (80-110); HEMOLYSIS < 15 (0-50); Sodium 130 mmol/L (137-145)
[2018-10-08 18:30] LABS: Troponin I 0.013 ng/mL (0.01-0.034)
[2018-10-08 19:28] VITALS: BP 183/76; PULSE 66; RESP 16; O2SAT 100
[2018-10-08 20:08] VITALS: BP 182/76; PULSE 62; RESP 15; O2SAT 100
== END 2018-10-08 20:10 | disposition home or self-care (01) ==
PROVIDERS: Emergency Medicine; Emergency Provider Internal Medicine; PCP Family Medicine
DX: R06.00 Dyspnea, unspecified (principal); R06.89 Other abnormalities of breathing; R07.89 Other chest pain
CPT/HCPCS: 36591; 71046; 80048; 81003; 82550; 83880; 84484; 85025; 85379; 93005; 93010; 94640; 99283; 99285; J7613

== ENCOUNTER → 2019-06-23 11:30 | Outpatient (CLI) | payer MEDICARE, OTHER, SELFPAY ==
--- NOTE | 2019-06-23 11:35 | DI.RAD.S_ITS ---
PROCEDURE: XR LUMBAR SPINE MIN 4V INDICATIONS: Hip pain TECHNIQUE: 4 views of the lumbar spine were acquired. COMPARISON: [facility], CR, XR HIP W PEL IF DONE JAI 3TO4V, 06/23/2019, 11:52. FINDINGS: Bones: There appear to be 6 nonrib-bearing lumbar-type vertebrae present. There is approximately 1.3 cm anterolisthesis of the second most inferior lumbar type vertebral body (labeled as L5) on the most inferior lumbar type vertebral body (labeled as L6). Severe right and mild left hip joint degenerative changes are again noted. Soft tissues: Midline sutures project over the lower abdomen/pelvis. Oblique images: Possible L5 pars defects, although the bilateral pars are obscured by overlapping osseous structures. IMPRESSION: 1. Approximately 1.3 cm anterolisthesis of the second most inferior lumbar type vertebral body (labeled as L5) on the most inferior lumbar type vertebral body (labeled as L6). 2. Severe right and mild left bilateral hip joint degenerative changes. Dictated by: Aurelio Mcintyre M.D. on 06/23/2019 at 15:58 Approved by: Aurelio Mcintyre M.D. on 06/23/2019 at 16:05
--- NOTE | 2019-06-23 11:35 | DI.RAD.S_ITS ---
PROCEDURE: XR HIP W PEL IF DONE LT MIN 4V INDICATIONS: Hip pain TECHNIQUE: AP pelvis with lateral view(s) of the bilateral hip(s). COMPARISON: None. FINDINGS: Bones: No fractures or dislocations. Pelvic ring appears intact. No suspicious bony lesions. Severe right and mild left hip joint degenerative changes. There is bone on bone articulation of the right hip joint with periarticular sclerosis. Soft tissues: Midline pelvic sutures are identified. IMPRESSION: Severe right and mild left bilateral hip joint degenerative changes. Dictated by: Aurelio Mcintyre M.D. on 06/23/2019 at 15:56 Approved by: Aurelio Mcintyre M.D. on 06/23/2019 at 15:58
== END ==
PROVIDERS: Family Provider Nurse Practitioner Gerontology; PCP Nurse Practitioner Gerontology; Visit Provider Physical Medicine & Rehabilitation
DX: M47.27 Other spondylosis with radiculopathy, lumbosacral region (principal); M25.559 Pain in unspecified hip; M16.11 Unilateral primary osteoarthritis, right hip
CPT/HCPCS: 72110; 73522; 99214

== ENCOUNTER 2019-12-29 16:22 | Observation (INO) | payer MEDICARE, OTHER, SELFPAY ==
[2019-12-14 12:42] VITALS: BMI 35.5
[2019-12-28] VITALS (12 sets, daily range): BP systolic 127–193; BP diastolic 53–84; PULSE 56–70; RESP 10–20; TEMP 35.6–36.4; O2SAT 95–100; BMI 35.5
--- NOTE | 2019-12-28 | DI.RAD.S_ITS ---
PROCEDURE: XR PELVIS 1-2V INDICATIONS: INTER OP HIP ARTHROPLASTY TECHNIQUE: Intra-operative view of the pelvis and hip acquired. COMPARISON: [facility], CR, XR HIP W PEL IF DONE JAI 3TO4V, 06/23/2019, 11:52. FINDINGS: Bones: Intraoperative devices prior to placement of arthroplasty prostheses are in expected positions. No fractures or suspicious bony lesions. Soft tissues: Overlying surgical retractors are present, along with other intraoperative changes. IMPRESSION: Intraoperative image obtained in the patient's right hip arthroplasty. No obvious fractures. Dictated by: Blaine Carbone M.D. on 12/28/2019 at 13:09 Approved by: Blaine Carbone M.D. on 12/28/2019 at 13:10
[2019-12-28] MEDS: LACTATED RINGERS 1,000 ML 42 ML IV ×3 (09:04→14:22)
[2019-12-28] MEDS: ACETAMINOPHEN 325 MG TABLET 975 MG PO (09:34)
[2019-12-28] MEDS: PREGABALIN 75 MG CAPSULE PO (09:35)
[2019-12-28] MEDS: CELECOXIB 200 MG CAPSULE 400 MG PO (09:35)
[2019-12-28] MEDS: VANCOMYCIN 1,000 MG/200 ML PIGGYBACK 200 MG IV (10:00)
--- NOTE | 2019-12-28 10:49 | DI.RAD.S_ITS ---
PROCEDURE: XR HIP W PEL IF DONE RT 2V INDICATIONS: post op TECHNIQUE: 2 view(s) of the hip acquired. COMPARISON: [facility], CR, XR HIP W PEL IF DONE JAI 3TO4V, 06/23/2019, 11:52. FINDINGS: Bones: Patient is status post right hip arthroplasty, with hardware components in expected positions. The hip joint appears congruent. The visualized bony structures appear intact. Soft tissues: Overlying postoperative changes are noted. No suspicious soft tissue densities. IMPRESSION: Normal alignment after right total hip arthroplasty. Dictated by: Nicho Gordillo M.D. on 12/28/2019 at 16:03 Approved by: Nicho Gordillo M.D. on 12/28/2019 at 16:04
--- NOTE | 2019-12-28 10:56 | PM.PREOP ---
Pre-operative Note Interval Note History & Physical reviewed/Exam performed by Physician: Yes Changes to H&P: No
[2019-12-28] MEDS: CEFAZOLIN 2 GM/100 ML FROZ.PIGGY IV ×2 (11:22→19:58)
[2019-12-28] MEDS: TRANEXAMIC ACID 1,000 MG VIAL 2000 MG INJ ×2 (12:00→13:30)
--- NOTE | 2019-12-28 12:39 | SUR.OPER ---
Lateral on padded OR bed. Gel axillary roll. Arms secured on padded armboard with pillow supporting top arm. Padded hip positioner braces x4 - anterior and posterior chest and pelvis. Additional gel pad used anterior pelvis. Gel pad under bottom leg from knee to foot and secured with tape over sheet.
[2019-12-28] MEDS: BUPIVACAINE 0.25% W/ EPI 30 ML VIAL 60 ML INJ (12:48)
[2019-12-28] MEDS: BUPIVACAINE LIPOSOME 266 MG/20 ML VIAL INJ (12:50)
[2019-12-28] MEDS: SODIUM CHLORIDE IRRIG SOLUTION 250 ML, EPINEPHrine 1 MG IRR (12:51)
[2019-12-28] MEDS: SODIUM CHLORIDE IRRIG SOLUTION 250 ML, POVIDONE-IODINE SPONGE STICKS 1 APPLIC IRR (12:53)
[2019-12-28] MEDS: HYDROMORPHONE 2 MG INJ IV ×4 (14:19→15:02)
--- NOTE | 2019-12-28 14:28 | P.OP_ITS ---
Operative Date/Time/Diagnoses Date of procedure: 12/28/19 Time of procedure: 11:09 Pre-op diagnosis: Severe right hip osteoarthritis Post-op diagnosis: same Procedure & Clinicians Procedure: Right total hip arthroplasty Same procedure as scheduled: Yes Indications: The patient has had progressively worsening right hip pain with radiographic changes consistent with arthritis. Non-operative management has failed and the patient has requested total hip replacement. The risks, benefits and alternatives to surgery were discussed with the patient prior to proceeding. Risks discussed included, but were not limited to, failure to relieve pain, leg length discrepancy, dislocation, stiffness, infection, nerve damage, deep venous thrombosis, pulmonary embolism, stroke, coma, heart attack, permanent paralysis and , as well as the potential need for eventual revision of the prosthetic. Surgeon: Sharda Madera Silk Screen Printer Helper: Noemí Santo Anesthesia Type: Spinal Operative Notes Findings: Severe right hip osteoarthritis, adequate stability, adequate but soft bone Closure Type: primary Specimen(s): none sent Prosthetic devices, grafts, tissues, transplants, or devices: [place] and Nephew 48 mm R3, size 7 standard offset anthology stem, minus 3 x 32 mm liner, Applied: drain(s) Estimated Blood Loss (mL): 250 Procedure in detail: The patient was seen in the pre-operative area, where the patient identified the right hip as the operative site and this was marked with my initials. The patient received pre-operative antibiotics and was taken to the operating room and placed on the operative table in the left lateral decubitus position after satisfactory anesthesia. A flight crew time clerk out was performed. The right leg was prepared from the ankle to the iliac crest with ChloroPrep in the usual fashion and draped through sterile drapes. The hip was approached through an approximately 22 cm incision centered over the greater trochanter and curving gently posteriorly as it went proximally. This was carried sharply to the fascia tresa, which was divided and retracted with a self retaining retractor. The trochanteric bursa was excised with care being taken to avoid the sciatic nerve, which was identified and protected throughout the case. The short external rotators were incised and the capsulomuscular flap was raised and tagged for later repair. The hip was dislocated, and a femoral neck osteotomy performed approximately 15 mm above the lesser trochanter. Retractors were placed around the femur. The canal was opened with a box cutting osteotome, followed by a T handled reamer and a lateralizing reamer. The chili pepper broach was then used, followed by sequential broaching until there was good stability of the broach in the femur. Retractors were placed to expose the acetabulum. The labrum and central soft tissues were removed. Reaming was performed initially going up in 2 mm increments, then 1 mm increments until good bite was obtained with an odd sized reamer. The cup 1 mm larger than the last reamer was then inserted using the appropriate anteversion guides. A trial neutral liner was placed. The broach was placed in the canal. A trial head and neck were then placed and the hip relocated and checked for leg length and stability. An intraoperative film confirmed the component position and no evidence of fracture. The patient was stable in the position of sleep, of squatting, and could be put through a range of motion with 45 degrees internal rotation without dislocation. At 90 degrees flexion, internal rotation to 70 was possible before dislocation. This was felt to be satisfactory and the appropriate components were opened, and the trials were removed. The acetabular liner was impacted into position. The final stem was then impacted into the prepared femoral canal. A brief Betadine soak was performed while trialing with head options. The hip was meticulously irrigated with normal saline. Finally the femoral head was impacted onto the stem. The acetabulum was cleared of all material and the hip relocated one final time. The capsulomuscular flap was then repaired to the greater trochanter though an awl hole using the tag sutures. The short external rotators were repaired with a nonabsorbable suture. A deep drain was placed and brought out anteriorly. The fascia tresa was closed with Vicryl. The subcutaneous layer was closed with barbed sutures and SteriStrips. An Aquacel Ag dressing was applied and the patient was taken to recovery having tolerated the procedure well. Complications: none Post-operative Condition: stable Disposition: Acute Care Plan for aftercare: The patient will be maintained on a standard total hip replacement protocol with weight bearing as tolerated and posterior hip precautions. The patient will receive Aspirin and sequential compression devices for DVT prophylaxis. The patient will be discharged home when safe for the home environment.
[2019-12-28] MEDS: OXYCODONE IR 5 MG TABLET PO (14:46)
--- NOTE | 2019-12-28 15:35 | SUR.PHASEI ---
Report called to Pavithra
[2019-12-28] MEDS: LACTATED RINGERS 1,000 ML 125 ML IV (16:00)
[2019-12-28] MEDS: IBUPROFEN 400 MG TABLET PO ×2 (17:33→20:49)
[2019-12-28] MEDS: ACETAMINOPHEN 325 MG TABLET 650 MG PO ×2 (17:34→20:48)
[2019-12-28] MEDS: carBAMazepine 200 MG TABLET PO ×2 (17:35→20:49)
[2019-12-28] MEDS: TRAMADOL 50 MG TABLET PO (19:58)
[2019-12-28] MEDS: OXYBUTYNIN 5 MG TABLET 2.5 MG PO (20:47)
[2019-12-28] MEDS: cloNIDine 0.1 MG TABLET PO (20:48)
[2019-12-28] MEDS: ASPIRIN EC 81 MG TABLET PO (20:49)
[2019-12-28] MEDS: DOCUSATE 100 MG CAPSULE PO (20:49)
--- NOTE | 2019-12-28 22:21 | PC.NURSE ---
Admit/Evening Shift Note- Patient arrived to room via bed from PACU. Patient alert and oriented and able to make needs known to staff. Patient pleasent, calm, and cooperative with care. Admission questions done, medications reviewed, and physical assessment done. PHOEBE dressing to right hip c/d/i. Hemavac unclamped and compressed to suction. ice packs provided. Patient oriented to bed and bed controls, room, bathroom, lights, phone, menu, and call stewart/tv remote. safety measures in place. Bed alarm activated. Patient agrees to call for assistance. call stewart abnd phone within reach. will continue to monitor.
[2019-12-28] MEDS: LOSARTAN 25 MG TABLET PO (23:30)
[2019-12-29] VITALS (8 sets, daily range): BP systolic 137–163; BP diastolic 65–80; PULSE 54–80; RESP 16–18; TEMP 36.2–37.1; O2SAT 94–98
[2019-12-29] MEDS: IBUPROFEN 400 MG TABLET PO ×6 (01:17→21:19)
[2019-12-29] MEDS: LACTATED RINGERS 1,000 ML 125 ML IV (01:26)
--- NOTE | 2019-12-29 02:38 | PC.NURSE ---
Addendum entered by Maria C Hamlin R.N. 12/29/19 06:27: States pain in right thigh is 4/10 so medicated with Ultram and given ice packs Original Note: Patient seen and assessed at 0135. Is alert and oriented. Breath sounds CTA with RA sat of 98%. HRR. BP elevated at 148/69. Denies nausea. BT present and is passing flatus. At shift change was bladder scanned by evening RN as had only voided 75cc since prior to surgery; was found to have > 400cc in bladder but patient able to get up to BSC with walker and 1 assist and voided 300cc. When gotten up to BSC was found with hemovac pulled out. Is able to turn self in bed but needs reminders not to turn to left side. PHOEBE dressing intact with shadow drainage noted; bruising around dressing. CMS is intact. Denies pain. Wearing bilateral calf SCD's. Reports having fallen in past 3 months so fall risk score is high and bed alarm is activated.
[2019-12-29] MEDS: CEFAZOLIN 2 GM/100 ML FROZ.PIGGY IV (03:36)
[2019-12-29 05:16] LABS: Hematocrit 34.1 % (36-46); Hemoglobin 11.6 g/dL (12.0-16.0)
[2019-12-29] MEDS: TRAMADOL 50 MG TABLET PO ×2 (06:24→19:12)
[2019-12-29] MEDS: OXYBUTYNIN 5 MG TABLET 2.5 MG PO ×2 (09:39→21:18)
[2019-12-29] MEDS: carBAMazepine 200 MG TABLET PO ×4 (09:40→21:19)
[2019-12-29] MEDS: ASPIRIN EC 81 MG TABLET PO ×2 (09:46→21:14)
[2019-12-29] MEDS: MULTIVITAMIN 1 TABLET 1 TAB PO (09:46)
[2019-12-29] MEDS: ACETAMINOPHEN 325 MG TABLET 650 MG PO ×3 (09:46→21:15)
[2019-12-29] MEDS: DOCUSATE 100 MG CAPSULE PO ×2 (09:47→21:14)
[2019-12-29] MEDS: LORATADINE 10 MG TABLET PO (09:47)
[2019-12-29] MEDS: LOSARTAN 50 MG TABLET PO (09:47)
[2019-12-29] MEDS: cloNIDine 0.1 MG TABLET PO ×2 (09:48→21:16)
--- NOTE | 2019-12-29 11:22 | PT.IIE ---
Current Diagnoses Unilateral primary osteoarthritis, right hip (12/28/19) Surgery Performed Operation Date: 12/28/19 10:30 Actual Procedures p Total Hip Arthroplasty(Right) - Sharda Madera MD Surgical History (Last Updated 12/14/19 @ 13:52 by Layla Spears RN) History of ankle surgery (Acute ~1999) History of colonoscopy (Acute ~2013) Hx of arthroscopy of right knee (Acute ~2014) Status post cataract surgery (Resolved) Medical History (Last Updated 12/14/19 @ 12:47 by Layla Spears RN) Acquired valgus deformity of knee (Acute) Chronic cough (Chronic) Easy bruisability (Acute) Epilepsy (Chronic) Gait instability (Acute) H/O: HTN (hypertension) (Chronic) History of hyperlipidemia (Chronic) Hyponatremia (Acute) Remove/insert IUD (Acute ~1975) Right knee DJD (Acute) Seizures (Acute) Physical Therapy Inpatient Evaluation/Re-Eval M1 PT/OT-IP Prior Functional Status Start: 12/29/19 08:25 Freq: NEEDED Status: Active Protocol: Document 12/29/19 09:35 (Rec: 12/29/19 11:22 [email or web address]) Medical Review Prior Functional Status Medical History Reviewed Yes Diet/Fluid Consistency Regular Communication no deficits noted. able to make needs known Mobility and Gait Pt stated she has been walking with an antalgic gait for awhile d/t pain but she did not need to use AD. She had a fall in Aug while reaching down to pull up her pajama. Denied falls before that. Activities of Daily Living and IADL's Independent with ADLs and IADLs without AD. Social History Household Members spouse Living Arrangements Apartment/Condo Number of Floors (Floors) One Floor Number of Stairs To Enter/Railing? 3 VETO with uneven R + L rail Pt stated she has difficulty lean down to reach for rails while descending and pt's is going to modify them this week. garage wit VETO and L wall/rail support. Home Environment High Toilet,Walk in Shower, Built-In Shower Seat Home Equipment Front Wheel Walker,Four Wheel Walker,Raised Toilet Seat w/ Armrests,Hand Held Shower, Blueprint Engineer,Sock Aid Employment Status Retired Additional Social History Comment Pt lives in [place] with her spouse. Spouse works time study clerk 6x/ week but will be off for next 3 days to assist pt. Pt also has a dtr will come to assist if needed. Pt stated she could sleep in recliner if needed but prefer sleeping in bed. M2 PT-IP Current Condition Start: 12/29/19 08:25 Freq: NEEDED Status: Active Protocol: Document 12/29/19 09:35 (Rec: 12/29/19 11:22 [email or web address]) Physical Therapy Current Condition Current Condition Evaluation Date 12/29/19 Treatment Diagnosis R ANDI (posterior), difficulty in walking Onset Date 12/28/19 Precautions Posterior Hip Precautions No Hip Flexion > 90 degrees,No Hip Internal Rotation,No Hip Adduction Weight Bearing Status Weight Bearing Status Weight Bear as Tolerated M3 PT-IP Subjective Start: 12/29/19 08:25 Freq: NEEDED Status: Active Protocol: Document 12/29/19 09:35 HH (Rec: 12/29/19 11:22 [email or web address]) Subjective Physical Therapy Visit Type Type Initial Evaluation Visit Start Time 09:35 Visit Stop Time 10:12 Total Visit Minutes 37 Number of CNC OPERATOR Visits 0 Physical Therapy Visit Comments Patient Comments My R leg feels very heavy and today. Still numb on my outside of the R thigh Patient Goals To be able climb steps prior to d/c home. Therapy Pain Assessment Pain When Pain Assessed During Mobility Pain Present Pain Present Pain Reported Location RLE Intensity 4 Scale Used Numeric (1 - 10) Description Aching Pain Management Techniques Apply Cold,Timing of Activity with Medications M4 PT-IP Mobility and Gait Start: 12/29/19 08:25 Freq: NEEDED Status: Active Protocol: Document 12/29/19 09:35 (Rec: 12/29/19 11:22 [email or web address]) PT-Bed Mobility Assessment Supine to Sit Supine to Sit Contact Guard Assistance, Bedrails Scooting Scooting to Edge of Bed Contact Guard Assistance PT-Transfer Assessment Sit to and From Stand Sit to and from Stand Contact Guard Assistance, Minimal Assistance,Use of Upper Extremities Equipment Transfer Assistive Device Gait Belt,Front Wheeled Walker Orthotic/Prosthetic Devices or Brace: No Transfers Transfer Destination Bed,Chair Transfer Technique Stand Step Pivot Transfer Ability Level of Assist Contact Guard Assistance,Use of Upper Extremities Comments Mobility Comments Pt was awake in bed upon PT arrival. BP at 127/64. Went through post op precautions and pt was able to recall them prior to revision. However, pt initially did a supine to long sit but she was able to recall no hip flexion >90 so she went back to supine and got back to 1/2 long sit. Educated pt to use gait belt to assist pivoting her R LE towards L side. She was able to sit at EOB with CGA. She then scooted forward and stood up with staggered stance and FWW with CGA. She needed cues to push off with 1 UE on bed and walk handle. She then amb from bed to hallway and returned to chair after. However, pt demonstrated a poor descend from stand to sit without reaching for chair armrests. Educated both spouse and pt regarding safety concern during transfers to prevent fall risks. Call light placed within reach after. Gait Assessment Gait Gait Assistance Required: Contact Guard Assist Distance (Feet) 110 Able to Maintain Weight Bearing Status Yes During Gait Assistive Devices Assistive Device Gait Belt,Front Wheeled Walker Orthotic/Prosthetic Devices or Brace: No Gait Deviations General Gait Pattern Antalgic,Decreased Stride Length,Decreased Feet Clearance,Flexed Trunk,Step-to Gait Factors Limiting Gait Function Factors Limiting Gait Function Decreased Strength,Limited Range of Motion,Pain,Poor Balance,Poor Safety Awareness Comments Gait Comments Pt amb from her room to hallway for a total of 110 ft with FWW CGA. Pt demonstrated step to gait slowly and has difficulty during turns. Pt mostly WB through UEs and LLE to pivot with small steps. Educated pt to maintain post precautions but WBAT. Stair Climbing Assessment Comments Stair Climbing Comments did not assess d/t limited mobility PT-Balance Assessment Sitting Balance and Reactions Static Sitting Balance Ability Normal Dynamic Sitting Balance Ability Normal Standing Balance and Reactions Static Standing Balance Ability Normal Dynamic Standing Balance Ability Good Device Used FWW M5 PT-IP Objective Assessments Start: 12/29/19 08:25 Freq: NEEDED Status: Active Protocol: Document 12/29/19 09:35 (Rec: 12/29/19 11:22 [email or web address]) Orientation Orientation/Cognition Level of Alertness Alert Orientation Name,Age,Birthday,Month,Date, Year,Day of Week,Place, Situation Language Function Ability No Deficits Noted Safety Awareness Understands Safety Issues Memory Description No Deficits Noted Gross Range of Motion Upper Extremity ROM Assessment Within Functional Limits Lower Extremity ROM Assessment Right Impaired Strength Upper Extremity Strength Assessment Within Functional Limits Lower Extremity Strength Assessment Right Impaired Hip 3+/5 Knee 4/5 Sensation Assessment Sensation Gross Sensation WNL Light Touch Intact M6 PT-IP Treatment Start: 12/29/19 08:25 Freq: NEEDED Status: Active Protocol: Document 12/29/19 09:35 (Rec: 12/29/19 11:22 [email or web address]) Physical Therapy Treatment Exercises Exercises Ankle Pumps,Gluteal Sets,Quad Sets,Heel Slides Education Education Provided Precautions,Weight Bearing Status,Post-Op Packet,Safety Other Treatments Other Treatment Performed Assisted pt to reverse front wheels to place wheels on lateral side of the walker to improve MACK. M7 PT-IP Assessment and Plan Start: 12/29/19 08:25 Freq: NEEDED Status: Active Protocol: Document 12/29/19 09:35 HH (Rec: 12/29/19 11:22 [email or web address]) PT Summary Assessment and Plan Potential Rehabilitation Potential Excellent Status of Condition at Evaluation Stable Summary Impairments Pain,ROM,Strength,Balance, Sensation,Bed Mobility, Transfers,Gait,Activity Tolerance Assessment Summary This is a low complexity evaluation for this 74yo female s/p POD 2 R ANDI with posterior approach. PLOF: pt lives with spouse and has been amb with antalgic gait without AD, and had one fall in oct while bending over. CLOF: Pt has limited mobility with step to pattern and FWW CGA slowly. She does have good awareness with post op precautions but she demonstrated poor descend during stand to sit without reaching for chair armrests. Pt also has 3 VETO at home and will need to complete them prior to d/c with family's assistance. Pt's spouse and dtr will attend session in pm. Goals Bed Mobility Goal Standby Assistance Transfer Goal Standby Assistance,Front Wheeled Walker Gait Goal Standby Assistance,Front Wheel Walker Gait Distance 200 Other Goals 3 VETO with B rails Days to Meet Goals 3 Frequency of Treatment Frequency Of Treatment Twice a Day Treatment Plan Physical Therapy Treatment Plan Bed Mobility Training,Transfer Training,Gait Training, Therapeutic Exercise,Balance Retraining,Post Op Education, Discharge Planning,Hot or Cold Pack,Neuromuscular Re-ed Other Recommendations and Next Treatment STS training to reach for Focus armrest gait traiing with step over pattern stair climbing if possible with B rails Recommendations To Nursing Amount of Assist Needed 1 Person Assist Discharge Recommendations PT Discharge Recommendations Home with Assistance, Outpatient PT Transportation Needs at Discharge Private Vehicle
--- NOTE | 2019-12-29 12:00 | P.PN_ITS ---
Subjective Subjective Date Patient Seen: 12/29/19 Time Patient Seen: 12:00 Interval history: Patient's pain is 3 to 4/10. Denies nausea vomiting. No fever chills. She did walk with physical therapy. She does have some steps into her home and they will practice those this afternoon. Her is home to assist her. She is otherwise without complaints this morning. Exam Vital Signs (past 8 hours): - 12/29/19 04:53 12/29/19 07:55 Temperature 97.2 F L 97.6 F Pulse Rate 54 L 60 Respiratory Rate 16 16 Blood Pressure 137/70 145/70 H Pulse Oximetry 98 Oxygen Delivery Method Room Air Oxygen Flow Rate 0 Narrative Exam Narrative: Pleasant 74-year-old female resting in bedside chair in no apparent distress. Carly dressing is on and functioning. Small amount of drain age noted otherwise clean dry and intact. Motor functions intact distal right lower extremity. Sensation grossly intact to light touch. Both legs are warm and dry. Objective Labs Result Diagrams: 12/29/19 04:53 Labs: Laboratory Results - last 24 hr 12/29/19 04:53 Hgb 11.6 L Hct 34.1 L Assessment & Plan Post-op Postoperative Procedures: Procedures Operation Date: 12/28/19 10:30 Actual Procedures Side Surgeon p Total Hip Arthroplasty Right Sharda Madera MD Weight-bearing as tolerated. Posterior hip precautions. Mobilize with physical therapy. Possible discharge home today if able to do steps with physical therapy.
--- NOTE | 2019-12-29 14:26 | PT.IPTN ---
Current Diagnoses Unilateral primary osteoarthritis, right hip (12/28/19) Surgery Performed Operation Date: 12/28/19 10:30 Actual Procedures p Total Hip Arthroplasty(Right) - Sharda Madera MD Physical Therapy Treatment Note M2 PT-IP Current Condition Start: 12/29/19 08:25 Freq: NEEDED Status: Active Protocol: Document 12/29/19 09:35 HH (Rec: 12/29/19 11:22 HH [email or web address]) Physical Therapy Current Condition Current Condition Evaluation Date 12/29/19 Treatment Diagnosis R ANDI (posterior), difficulty in walking Onset Date 12/28/19 Precautions Posterior Hip Precautions No Hip Flexion > 90 degrees,No Hip Internal Rotation,No Hip Adduction Weight Bearing Status Weight Bearing Status Weight Bear as Tolerated M3 PT-IP Subjective Start: 12/29/19 08:25 Freq: NEEDED Status: Active Protocol: Document 12/29/19 14:26 AB (Rec: 12/29/19 16:49 AB [id number]) Subjective Physical Therapy Visit Type Type Treatment Note Visit Start Time 14:26 Visit Stop Time 15:57 Total Visit Minutes 91 Number of INTERNATIONAL ACCOUNTANT Visits 0 Physical Therapy Visit Comments Patient Comments pt agreeable to do PT. family in room with pt. Therapy Pain Assessment Pain When Pain Assessed At Rest Pain Present Pain Present Pain Reported Location RLE Intensity 3 Scale Used Numeric (1 - 10) Pain Management Techniques Apply Cold,Re-positioning, Timing of Activity with Medications M4 PT-IP Mobility and Gait Start: 12/29/19 08:25 Freq: NEEDED Status: Active Protocol: Document 12/29/19 14:26 AB (Rec: 12/29/19 16:49 AB [id number]) PT-Bed Mobility Assessment Supine to Sit Supine to Sit Standby Assistance,Minimal Assistance Sit to Supine Sit to Supine Standby Assistance PT-Transfer Assessment Sit to and From Stand Sit to and from Stand Contact Guard Assistance, Minimal Assistance,1 Person Assistance,Use of Upper Extremities Equipment Transfer Assistive Device Gait Belt,Front Wheeled Walker Orthotic/Prosthetic Devices or Brace: No Comments Mobility Comments caregiver training conducted with spouse and pt's daughter. educated on pt's hip precautions, use of safety belt and how to assist pt. pt completed bed mobility supine <>sit x 4 reps initially requiring min A and cues but after 2 reps was able to complete SBA and occasional verbal cues. pt was able to complete sit to stand with spouse assisting and spouse was able to cue pt as needed. daughter was also able to cue pt to maintain hip precautions. pt ambulated with FWW and spouse assisting ~ 75 ft CGA. completed stair climbing and then assisted pt back to the room. able to ambulated from w/c to bed using FWW SBA. completed sit to supine SBA. positioned pt in bed. ice pack provided. call light and table placed within reach. Gait Assessment Gait Gait Assistance Required: Standby Assistance,Contact Guard Assist Distance (Feet) 75 Able to Maintain Weight Bearing Status Yes During Gait Assistive Devices Assistive Device Gait Belt,Front Wheeled Walker Orthotic/Prosthetic Devices or Brace: No Gait Deviations General Gait Pattern Antalgic,Decreased Stride Length,Decreased Feet Clearance Factors Limiting Gait Function Factors Limiting Gait Function Decreased Activity Tolerance, Decreased Strength,Limited Range of Motion,Pain,Poor Balance,Poor Safety Awareness Comments Gait Comments presents with increase R knee valgus and ankle eversion. pt stated that she has a knee brace that she uses for ambulation to correct her knee valgus but brace is at home. Stair Climbing Assessment Evaluation Level of Assist On Stairs Contact Guard Assistance, Minimal Assistance,1 Person Assistance Devices Stair Climbing Assistive Devices Left Railing,Right Railing Technique/Endurance Stair Climbing Direction Ascend and Descend Stair Climbing Technique Step to Step Number of Steps Climbed 3 Stair Climbing Set # Repetitions (reps) 3 Comments Stair Climbing Comments educated pt , spouse and daughter on how to do stairs. PT intially assisted pt with up/down steps using bilateral rails but afterwards, spouse assisted pt with stairs wiht pt holding on to R rail with B hands. spouse was able to assist pt safely. M5 PT-IP Objective Assessments Start: 12/29/19 08:25 Freq: NEEDED Status: Active Protocol: Document 12/29/19 09:35 (Rec: 12/29/19 11:22 [email or web address]) Orientation Orientation/Cognition Level of Alertness Alert Orientation Name,Age,Birthday,Month,Date, Year,Day of Week,Place, Situation Language Function Ability No Deficits Noted Safety Awareness Understands Safety Issues Memory Description No Deficits Noted Gross Range of Motion Upper Extremity ROM Assessment Within Functional Limits Lower Extremity ROM Assessment Right Impaired Strength Upper Extremity Strength Assessment Within Functional Limits Lower Extremity Strength Assessment Right Impaired Hip 3+/5 Knee 4/5 Sensation Assessment Sensation Gross Sensation WNL Light Touch Intact M6 PT-IP Treatment Start: 12/29/19 08:25 Freq: NEEDED Status: Active Protocol: Document 12/29/19 14:26 AB (Rec: 12/29/19 16:49 AB [id number]) Physical Therapy Treatment Education Education Provided Precautions,Weight Bearing Status,Safety M7 PT-IP Assessment and Plan Start: 12/29/19 08:25 Freq: NEEDED Status: Active Protocol: Document 12/29/19 14:26 AB (Rec: 12/29/19 16:49 AB [id number]) PT Summary Assessment and Plan Potential Rehabilitation Potential Good Summary Impairments Pain,ROM,Strength,Balance, Coordination,Sensation,Tone, Cognition,Bed Mobility, Transfers,Gait,Activity Tolerance Progress Towards Goals Slow Progress due to Activity Tolerance Assessment Summary caregiver training conducted and will conduct another training tomorrow. pt stated that she does not feel confident with stairs and will do stair training again tomorrow with family. will continue to assess progress. Goals Bed Mobility Goal Standby Assistance Transfer Goal Standby Assistance,Front Wheeled Walker Gait Goal Standby Assistance,Front Wheel Walker Gait Distance 200 Other Goals 3 VETO with R rail Days to Meet Goals 3 Frequency of Treatment Frequency Of Treatment Twice a Day Treatment Plan Physical Therapy Treatment Plan Bed Mobility Training,Transfer Training,Gait Training, Therapeutic Exercise,Balance Retraining,Post Op Education, Discharge Planning,Hot or Cold Pack,Neuromuscular Re-ed Other Recommendations and Next Treatment caregiver training, stair Focus training Recommendations To Nursing Amount of Assist Needed 1 Person Assist Discharge Recommendations PT Discharge Recommendations Home with Assistance, Outpatient PT Transportation Needs at Discharge Private Vehicle
--- NOTE | 2019-12-29 14:45 | CM.DANOTE ---
DCP Assessment: EMR Reviewed: Patient is a 74 year old female who had a right total hip arthroplasty completed by Dr. Madera. Met with patient in room where she was sitting in chair at bedside and introduced self and role. Patient's , Lj, and daughter, Sydney, in room as well. Pt's PCP is Dr. Cooney. Patient reported lives with and has 5 stairs into home. Initial PT eval completed and PT stair training being conducted this PM. Patient has FWW at home. Patient's and daughter are both available to help her after discharge. I: [email or web address] P: Discharge home with (Lj) and daughter (Sydney) pending PT stair training. Care management will continue to follow and be available for discharge planning needs. SN Isi Phillips RN Discharge Planning/Care Management Advanced directive, confirm from FAMILY Start: 12/28/19 16:47 Freq: Q24H Status: Complete Protocol: Document 12/28/19 16:47 AGW (Rec: 12/28/19 19:05 AGW [id number]) Advance Directive, confirm on record Time 16:00 Person contacted Copy received No CM Discharge Assessment Start: 12/29/19 14:18 Freq: Status: Active Protocol: Document 12/29/19 14:44 HS (Rec: 12/29/19 14:45 HS [id number]) Discharge Planning Assessment Assigned Compliance Field Technician Isi Madera RN/YONY Phillips Advance Directives? Yes Advance Directives on File No History Provided By Patient,Medical Record Has Patient been admitted in last 30 No days? Prior Living Arrangements Apartment/Condo Household Members spouse Type of transporation used prior to Drives own vehicle admit Independent with ADL's Yes Is patient alert and oriented? Yes Caregiver for Another No DME Already Rented / Owned FWW / Walker Patient/Family Preference OP PT Therapy Barriers to Discharge No Discharge Plan Home Referrals Initiated None needed Whiteboard Updated in Patient Room with Yes name and ext. # of Compliance Field Technician Review Status In Process Next Review Type Continued Stay Review Pre-Anesthesia Assessment Start: 12/14/19 12:42 Freq: Status: Complete Protocol: Document 12/14/19 12:42 CAB (Rec: 12/14/19 13:52 CAB [id number]) Pre-Anesthesia Assessment Patient Information Reviewed Via Phone Assessment Assessment Completed With Patient Comment Labs/EKG done per pt-outside EKG only available at time of assess Primary Care Provider Jaylene Cooney Seen Specialist in Last 12 Months Yes Specialist Seen Guest Services Coordinator,Orthopedist Primary Language Albanian [employer]el Drawing Operator Required No Height 162.56 cm Weight 93.894 kg Body Mass Index (BMI) 35.5 Hearing Ability Normal Visual Assist None Dentition Type Teeth, Natural Present Barriers to Learning None Other Aids No Hx Anesthesia Reactions No Hx Family Anesthesia Reaction No Hx Malignant Hyperthermia No Hx Blood Transfusions No Hx Blood Transfusion Reaction No Anesthesia Review Requested No alcohol intake current Alcohol Intake Frequency Other: Occasional Smoking Status Never smoker Substance Use Type does not use Pain Present Pain Reported Musculoskeletal Symptoms Abnormal Gait,Difficulty Walking,Joint Pain History of Falling (Recent or History of No ) Patient is completely paralyzed or No completely immobile Prosthesis or Orthotic Device Cane,Front Wheel Walker Mental Status Oriented to own ability Is patient on oxygen? No Does patient have MCNULTY/SOB Yes Hx Sleep Apnea No CPAP/BIPAP use not prescribed Currently Taking a Beta Darvin No Can You Climb a Flight of Stairs Without No: r/t deconditioning per pt SOB Hx Chest Pain Yes Hx SOB Yes Hx Syncope or Dizziness No Anti-Coagulant Therapy No Has a Guest Services Coordinator Yes: Dr Vergara-visit Hx Pacemaker/ICD No Pacemaker Rep Required? No Comment Cardiac records scanned to record Bladder Pattern Urgency Urinary Catheter Present No Hx Urinary Self Catheterization No Diabetes No Patient No Lactating No Presence of External or Internal Medical Yes: Screws in Lt ankle Devices Have you traveled outside the [facility] in the last 30 days? Marital Status Lives With spouse Prior Living Arrangements House Number of Floors (Floors) One Floor Support System Child/Children,Spouse Does the Patient Have Assistance After Yes Surgery Patient Discharge Plan Description Return Home Comment Pt advised overnight length of stay per surgeon Feels Safe in Current Environment Yes Been Physically Hurt or Threatened By a No Person in Current Environment Do you have thoughts of harming yourself None or others? Are you currently considering suicide? No Do you have a plan to hurt yourself or No Plan others? Do You Have Any Spiritual Beliefs That No May Affect Your HC Choices? Do You Have Any Cultural Practices That No May Affect Your HC Choices? Comment Steve Who Can We Speak to About Patient's Care Family, friends Identifying Code for Release of Patient Declines to issue Information Health Care Proxy/Next of Kin Lj () Health Care Proxy Emergency Contact Name Lj () Emergency Contact Advance Directives? Yes Advance Directives on File No Requested Patient Bring Advanced Yes Directives DOS Power of Lead Care Manager Yes Power of Lead Care Manager Name Lj Power of Lead Care Manager PAC Instructions Do not shave/clip surgical site,Durable medical equipment ,Medications to take/avoid, Nasal antibiotic,No ETOH/ petroleum product on skin DOS, NPO,Post-op transportation,Pre -surgical wash,Sturdy shoes/ comfortable clothes,Do not bring valuables and remove jewelry
[2019-12-29] MEDS: LOSARTAN 25 MG TABLET PO (21:19)
[2019-12-30] VITALS: BP 139/61; PULSE 67; RESP 16; TEMP 36.6; O2SAT 96
[2019-12-30] MEDS: IBUPROFEN 400 MG TABLET PO ×3 (01:05→08:22)
[2019-12-30] MEDS: TRAMADOL 50 MG TABLET PO ×2 (01:05→10:07)
--- NOTE | 2019-12-30 05:26 | PC.NURSE ---
Patient seen and assessed at 0120. Is alert and oriented. Breath sounds CTA with RA sat of 96%. HRR. Denies nausea. BT present and is passing flatus. Voiding without dysuria, frequency or urgency. PHOEBE dressing to right hip intact with sanguinous drainage noted but not saturating dressing as yet. CMS is intact but is unable to lift right leg off bed as yet. Complains of dull, aching pain with 3/10 severity so medicated with scheduled Ibuprofen as well as Tramadol. Is able to turn herself but needs reinforcement that she cannot turn to left. Up to bathroom with walker and SBA. Had SCD's on at shift change but requested them off after being up to bathroom; reminded to ankle wave. Reports 1 fall in past 3 months so fall risk score is high and bed alarm is activated.
--- NOTE | 2019-12-30 07:23 | P.DS_ITS ---
History of Present Illness History of Present Illness Date Patient Seen: 12/30/19 Time Patient Seen: 07:23 Chief complaint: 62504 Right Total Hip Arthroplasty Narrative: Please see HPI previously recorded in the chart. Discharge Providers Provider Date of admission: 12/28/19 08:27 Discharge Date: 12/30/19 Primary care physician: GASTON Sutherland Consults: 12/28/19 10:47 Consult to Anesthesiology Routine Comment: Consulting Provider: Anesthesiologist Reason for consultation: Regional block for post operative pain control 12/28/19 16:11 Consult to Discharge Planning Routine Comment: Consult to Physical Therapy Evaluate & Treat Comment: Physician Instructions: post op ANDI protocol Consult to Respiratory Therapy Evaluate & Treat Comment: Physician Instructions: Evaluate and treat Discharge provider: Noemí Santo PA-C Summary Hospital Course Discharge Diagnosis: s/p right total hip arthroplasty Hospital Course: Junie is a 74 year old female who has had progressively worsening right hip pain with radiographic changes consistent with arthritis. Non-operative management has failed and the patient has requested total hip replacement. The risks, benefits and alternatives to surgery were discussed with the patient prior to proceeding. Risks discussed included, but were not limited to, failure to relieve pain, leg length discrepancy, dislocation, stiffness, infection, nerve damage, deep venous thrombosis, pulmonary embolism, stroke, coma, heart attack, permanent paralysis and , as well as the potential need for eventual revision of the prosthetic. After obtaining informed consent she was taken to the operating room where she underwent a right total hip arthroplasty with Dr. Madera which she tolerated well without complications. Afterwards she was transferred to the acute care floor where she has been progressing well postopreatively. Her pain has been well controlled with Tylenol, Ibuprofen, and Tramadol over the course of her hospitalization. She had some difficulty mobilizing, especially with stairs, on POD#1 which improved significantly on POD#2. She has been voiding appropriately and has been tolerating a diet. Discussed care of PHOEBE dressing which she was discharged with. She was deemed medically stable and discharged to home on POD#2 with supply of Tramadol and Colace. Status at Discharge Cognitive/behavioral status at discharge: oriented Functional status at discharge: uses cane/walker Overall status at discharge: patient is progressing back to baseline Exam Vital Signs (past 8 hours): - 12/30/19 00:00 Temperature 97.8 F Pulse Rate 67 Respiratory Rate 16 Blood Pressure 139/61 Pulse Oximetry 96 Oxygen Delivery Method Room Air Oxygen Flow Rate 0 Narrative Exam Narrative: 74 year old female resting comfortably in bed. Alert and oriented in no acute distress. Some shadow drainage present however PHOEBE is intact and functioning. Will demarcate drainage and instructed patient to call office if this grows. Objective Labs Result Diagrams: 12/29/19 04:53 Discharge Plan Discharge Plan Patient Disposition: Home Discharge orders & Medications Prescriptions: New acetaminophen 325 mg Tablet 650 mg PO TID Qty: 40 RF: 0 aspirin 81 mg Tablet,Delayed Release (Dr/Ec) 81 mg PO BID Qty: 40 RF: 0 docusate sodium [DOK] 100 mg Capsule 100 mg PO BID Qty: 40 RF: 0 tramadol 50 mg Tablet 50 mg PO QID PRN (Reason: Pain, Moderate (4-6)) Qty: 60 RF: 0 Continued Zyrtec 10 mg Capsule 10 mg PO BID RF: 0 clonidine HCl 0.1 mg Tablet Extended Release 12 Hr 0.1 mg PO BID RF: 0 fluticasone propionate [Flonase Allergy Relief] 50 mcg/actuation spray,suspension 1 spray INTRANASAL DAILY PRN (Reason: Seasonal allergies) RF: 0 losartan 50 mg Tablet 50 mg PO SEEINSTR RF: 0 calcium carbonate [Calcium 500] 500 mg calcium (1,250 mg) Tablet 500 mg PO TID RF: 0 oxybutynin chloride 5 mg Tablet 2.5 mg PO BID RF: 0 multivitamin Capsule 1 cap PO QAM RF: 0 carbamazepine [Tegretol] 200 mg Tablet 200 mg PO QID RF: 0 celecoxib [Celebrex] 200 mg capsule 200 mg PO DAILY Qty: 90 RF: 1 acetaminophen [Tylenol Extra Strength] 500 mg tablet 1,000 mg PO BID PRN (Reason: Pain) RF: 0 Follow up/Referrals: Sharda Madera MD [Physician] - Diet/Activity/Treatments Diet: Diet as Tolerated Activity: Weight bear as tolerated. Posterior hip precautions. Use a front wheel walker or cane for fall prevention. Cold/Heat Therapy: Use ice packs as needed. Allow skin to return to room te mperature between icing. Skin/Wound/Dressing Care Report to your healthcare provider any signs of infection, such as:: chills, fever, night sweats, unusual drainage and unusual redness Dressing: PHOEBE dressing should remain on until you 2 week postoperative visit. The unit usually runs out of power around 1 week. Feel free to unscrew the power unit cord from the dressing at that time. Visit Report/Discharge Packet Instructions: DI for Hip Replacement, Tramadol (By mouth) Discharge Data Primary Care Provider: Jaylene Cooney Attending Provider: Sharda Madera Admit Date/Time: 12/29/19 16:22 Discharges patient from system. Discharge Date/Time: 12/30/19 11:49
[2019-12-30] MEDS: OXYBUTYNIN 5 MG TABLET 2.5 MG PO (08:20)
[2019-12-30] MEDS: ASPIRIN EC 81 MG TABLET PO (08:20)
[2019-12-30] MEDS: MULTIVITAMIN 1 TABLET 1 TAB PO (08:20)
[2019-12-30] MEDS: LORATADINE 10 MG TABLET PO (08:20)
[2019-12-30] MEDS: DOCUSATE 100 MG CAPSULE PO (08:20)
[2019-12-30] MEDS: carBAMazepine 200 MG TABLET PO (08:20)
[2019-12-30 08:21] VITALS: BP 117/52
[2019-12-30] MEDS: cloNIDine 0.1 MG TABLET PO (08:21)
[2019-12-30] MEDS: LOSARTAN 50 MG TABLET PO (08:21)
[2019-12-30] MEDS: ACETAMINOPHEN 325 MG TABLET 650 MG PO (08:23)
--- NOTE | 2019-12-30 09:41 | PT.IPTN ---
Current Diagnoses Unilateral primary osteoarthritis, right hip (12/29/19) Surgery Performed Operation Date: 12/28/19 10:30 Actual Procedures p Total Hip Arthroplasty(Right) - Sharda Madera MD Physical Therapy Treatment Note M2 PT-IP Current Condition Start: 12/29/19 08:25 Freq: NEEDED Status: Discharge Protocol: Document 12/29/19 09:35 HH (Rec: 12/29/19 11:22 HH [id number]) Physical Therapy Current Condition Current Condition Evaluation Date 12/29/19 Treatment Diagnosis R ANDI (posterior), difficulty in walking Onset Date 12/28/19 Precautions Posterior Hip Precautions No Hip Flexion > 90 degrees,No Hip Internal Rotation,No Hip Adduction Weight Bearing Status Weight Bearing Status Weight Bear as Tolerated M3 PT-IP Subjective Start: 12/29/19 08:25 Freq: NEEDED Status: Discharge Protocol: Document 12/30/19 09:41 AB (Rec: 12/30/19 12:58 AB [id number]) Subjective Physical Therapy Visit Type Type Treatment Note Visit Start Time 09:41 Visit Stop Time 10:29 Total Visit Minutes 48 Number of DYE AUTOMATION OPERATOR Visits 0 Physical Therapy Visit Comments Patient Comments pt agreeable to do PT Therapy Pain Assessment Pain When Pain Assessed At Rest Pain Present Pain Present Pain Reported Location Right Hip Intensity 6 Scale Used Numeric (1 - 10) Pain Management Techniques Apply Cold,Re-positioning, Timing of Activity with Medications M4 PT-IP Mobility and Gait Start: 12/29/19 08:25 Freq: NEEDED Status: Discharge Protocol: Document 12/30/19 09:41 AB (Rec: 12/30/19 12:58 AB [id number]) PT-Bed Mobility Assessment Supine to Sit Supine to Sit Standby Assistance Sit to Supine Sit to Supine Standby Assistance Scooting Scooting to Edge of Bed Standby Assistance PT-Transfer Assessment Sit to and From Stand Sit to and from Stand Standby Assistance,Contact Guard Assistance,1 Person Assistance Equipment Transfer Assistive Device Gait Belt,Front Wheeled Walker Orthotic/Prosthetic Devices or Brace: No Transfers Transfer Destination Bed,Chair Transfer Technique Stand Step Pivot Transfer Ability Level of Assist Contact Guard Assistance,Use of Upper Extremities Comments Mobility Comments caregiver training conducted and spouse was able to assist pt. occasional cues provided but pt's daughter also in room and reminds pt and spouse on how to assist safely. reviewed hip precautions with pt and pt requires cues to recall. daughter able to cue pt regarding hip precautions. completed bed mobility supine <>sit x 4 reps. recommending bedside commode for night time use and pt agreed. family aware and stated that they have a bedside commode and RTS. pt ambulated ~ 125 ft with spouse assisting using FWW SBA to CGA. completed stair climbing using R rail CGA. pt requested to go back to bed after PT. ambulated from w/c to bed using FWW SBA. cues for techniques to maintain hip precautions. completed sit to supine SBA. positioned pt in bed. call light and table placed within reach. Gait Assessment Gait Gait Assistance Required: Standby Assistance,Contact Guard Assist Distance (Feet) 125 Able to Maintain Weight Bearing Status Yes During Gait Assistive Devices Assistive Device Gait Belt,Front Wheeled Walker Orthotic/Prosthetic Devices or Brace: No Gait Deviations General Gait Pattern Antalgic,Decreased Stride Length,Decreased Feet Clearance,Step-to Gait Factors Limiting Gait Function Factors Limiting Gait Function Decreased Activity Tolerance, Decreased Strength,Difficulty Following Directions,Limited Range of Motion,Pain,Poor Balance,Poor Safety Awareness Stair Climbing Assessment Evaluation Level of Assist On Stairs Contact Guard Assistance,1 Person Assistance Devices Stair Climbing Assistive Devices Right Railing Technique/Endurance Stair Climbing Direction Ascend and Descend Stair Climbing Technique Step to Step Number of Steps Climbed 3 Stair Climbing Set # Repetitions (reps) 2 M5 PT-IP Objective Assessments Start: 12/29/19 08:25 Freq: NEEDED Status: Discharge Protocol: Document 12/29/19 09:35 HH (Rec: 12/29/19 11:22 HH [id number]) Orientation Orientation/Cognition Level of Alertness Alert Orientation Name,Age,Birthday,Month,Date, Year,Day of Week,Place, Situation Language Function Ability No Deficits Noted Safety Awareness Understands Safety Issues Memory Description No Deficits Noted Gross Range of Motion Upper Extremity ROM Assessment Within Functional Limits Lower Extremity ROM Assessment Right Impaired Strength Upper Extremity Strength Assessment Within Functional Limits Lower Extremity Strength Assessment Right Impaired Hip 3+/5 Knee 4/5 Sensation Assessment Sensation Gross Sensation WNL Light Touch Intact M6 PT-IP Treatment Start: 12/29/19 08:25 Freq: NEEDED Status: Discharge Protocol: Document 12/30/19 09:41 AB (Rec: 12/30/19 12:58 AB [id number]) Physical Therapy Treatment Education Education Provided Precautions,Safety M7 PT-IP Assessment and Plan Start: 12/29/19 08:25 Freq: NEEDED Status: Discharge Protocol: Document 12/30/19 09:41 AB (Rec: 12/30/19 12:58 AB [id number]) PT Summary Assessment and Plan Potential Rehabilitation Potential Good Summary Impairments Pain,ROM,Strength,Balance, Coordination,Sensation,Tone, Cognition,Bed Mobility, Transfers,Gait,Activity Tolerance Assessment Summary caregiver training completed and family was able to provide pt assistance safely. pt plans to go home today and is already set up for outpt PT. Goals Bed Mobility Goal Standby Assistance Transfer Goal Standby Assistance,Front Wheeled Walker Gait Goal Standby Assistance,Front Wheel Walker Gait Distance 200 Other Goals 3 VETO with R rail Days to Meet Goals 3 Frequency of Treatment Frequency Of Treatment Twice a Day Treatment Plan Physical Therapy Treatment Plan Bed Mobility Training,Transfer Training,Gait Training, Therapeutic Exercise,Balance Retraining,Post Op Education, Discharge Planning,Hot or Cold Pack,Neuromuscular Re-ed Other Recommendations and Next Treatment caregiver training, stair Focus training Recommendations To Nursing Amount of Assist Needed 1 Person Assist Discharge Recommendations PT Discharge Recommendations Home with Assistance, Outpatient PT Transportation Needs at Discharge Private Vehicle
[2019-12-30 10:38] VITALS: BP 117/52; PULSE 66; RESP 16; TEMP 36.3; O2SAT 100
--- NOTE | 2019-12-30 11:46 | PC.NURSE ---
Pt is dressed and ready for discharge home with spouse. IV removed. Went over d/c instructions with Pt - discussed d/c meds, time of last dose, reviewed stroke education, signs/symptoms of infection, follow up and hip precautions. Pt denies further questions and was taken out via w/c by SCREW DRIVER OPERATOR to POV with Spouse and all belongings.
== END 2019-12-30 11:49 | disposition home or self-care (01) ==
LOC: AC 12-30 10:44 → OR 12-30 12:19 → AC 12-30 12:21
PROVIDERS: Admitting Provider Orthopaedic Surgery; Family Provider Nurse Practitioner Gerontology; PCP Nurse Practitioner Gerontology; Referring Provider Orthopaedic Surgery; Visit Provider Orthopaedic Surgery
PROC: 0SR90JZ Replacement of Right Hip Joint with Synthetic Substitute, Open Approach (ICD-10-PCS; CPT 27130; principal; 2019-12-28 10:30)
DX: M16.11 Unilateral primary osteoarthritis, right hip (principal)
CPT/HCPCS: 27130; 36415; 72170; 73502; 85014; 85018; 97161; 97530; C1776; G0378; C9290; J0171; J0690; J1170; J2704

== ENCOUNTER → 2021-03-19 13:40 | Outpatient (CLI) | payer MEDICARE, OTHER, SELFPAY ==
[2019-12-28 16:40] VITALS: BMI 35.5
--- NOTE | 2021-03-19 | DI.ECHO.S_ITS ---
[facility]---------+ [facility] +---------+ : : [address] : : : : [id number] : : : : Phone: [phone]+ Echocardiogram Report + + :Name: PETER ANDERSEN Study Date: 03/19/2021 Height: 64 in : :[facility] ReadingLocation: Weight: 193 lb : : Gender: Female BSA: 1.9 m2 : :: 1945 Age: 76 yrs BP: 165/98 mmHg: :Reason For Study: HYPERTENSION : :Ordering Physician: KIMO, : :LUIS Performed By: Margie Godfrey : :Referring: LUIS MALIN : + + Interpretation Summary The patient was in atrial flutter with heart rates between 67-86 bpm during the exam. The left ventricle is normal in size. The ejection fraction is estimated to be 55-60%. The right ventricle is normal size. Right ventricular systolic function is at the lower limits of normal. There is mild to moderate tricuspid regurgitation. The right ventricular systolic pressure is estimated to be at least 42 mmHg based on an estimated right atrial pressure of 3 mm Hg. Mild atherosclerotic plaque(s) in the aortic arch. There is aortic root sclerosis/calcification. Procedure: A two-dimensional transthoracic echocardiogram with color flow and Doppler was performed. The study quality was technically adequate. There is no prior echocardiogram noted for this patient. The patient had occasional PVCs during the exam. The patient was in atrial flutter with heart rates between 67-86 bpm during the exam. Left Ventricle: The left ventricle is normal in size. Proximal septal thickening is noted. There is no echo evidence for significant left ventricular outflow tract obstruction. There is no thrombus. The ejection fraction is estimated to be 55-60%. There are no focal wall motion abnormalities. E/E' med: 8.6. Right Ventricle: The right ventricle is normal size. Right ventricular systolic function is at the lower limits of normal. Atria: The left atrium is severely dilated. The right atrium is moderate to severely dilated. There is no Doppler evidence for an interatrial shunt. The interatrial septum bows toward right atrium consistent with elevated left atrial pressure. Mitral Valve: There is mild mitral annular calcification. There is mild mitral regurgitation. Aortic Valve: The aortic valve is trileaflet. The aortic valve opens well. There is mild aortic valve sclerosis. There is no aortic valve stenosis. No aortic regurgitation is present. Tricuspid Valve: The tricuspid valve is normal. There is mild to moderate tricuspid regurgitation. The right ventricular systolic pressure is estimated to be at least 42 mmHg based on an estimated right atrial pressure of 3 mm Hg. Pulmonic Valve: The pulmonic valve is not well seen, but is grossly normal. There is no pulmonic valvular regurgitation. Great Vessels: The aortic root is normal size. There is aortic root sclerosis/calcification. The dimensions of the ascending aorta are normal. Mild atherosclerotic plaque(s) in the aortic arch. The IVC is of normal diameter and collapses greater than 50% with a sniff. This suggests a low right atrial pressure of 3 mm Hg. Pericardium/ Pleura There is no pericardial effusion. There is no pleural effusion. MMode/2D Measurements & Calculations LVIDd: 3.8 cm LVOT diam: 1.8 cm LVIDs: 2.8 cm Ao root diam: 2.9 cm FS: 27.6 % asc Aorta Diam: 3.2 cm EPSS: 0.44 cm Ao Arch Diam (Prox Trans): 2.6 cm IVSd: 0.87 cm LVPWd: 0.94 cm LV schaeffer. diameter/BSA (cm/m^2): 2.0 LV sys. diameter/BSA (cm/m^2): 1.4 LA A2 area: 26.5 cm2 RA long axis: 5.5 cm LA A4 area: 24.9 cm2 RA area: 22.0 cm2 LA length (vol): 6.2 cm RA vol: 74.4 ml LA vol: 90.3 ml RA : 38.6 ml/m2 LA vol index: 46.8 ml/m2 IVC diam: 1.1 cm RVD1 (basal): 2.9 cm TAPSE: 1.7 cm Doppler Measurements & Calculations Ao V2 max: 131.1 cm/sec LVOT Max Salas: 91.7 cm/sec Ao V2 mean: 88.1 cm/sec LV V1 max P.4 mmHg Ao max P.9 mmHg LV V1 VTI: 19.3 cm Ao mean P.6 mmHg TANYA(I,D): 2.1 cm2 Ao V2 VTI: 25.1 cm TANYA(V,D): 1.9 cm2 sev ratio: 0.77 TANYA indexed to BSA (cm^2/m^2): 1.1 MV E max salas: 100.2 cm/sec TR max salas: 310.9 cm/sec MV A max salas: 1.4 cm/sec TR max P.9 mmHg MV E/A: 73.9 PA V2 max: 85.5 cm/sec Med Peak E' Salas: 11.6 cm/sec PA V2 mean: 61.3 cm/sec E/E' med: 8.6 PA mean P.7 mmHg Lat Peak E' Salas: 14.5 cm/sec PA pr(Accel): 43.0 mmHg E/E' lat: 6.9 E/e' average: 7.8 MV dec time: 0.15 sec SV(LVOT): 51.7 ml Reading Physician:03:44 PM
== END ==
PROVIDERS: Family Provider Nurse Practitioner Gerontology; PCP Nurse Practitioner Family; Referring Provider Internal Medicine Cardiovascular Disease; Visit Provider Internal Medicine Cardiovascular Disease
DX: I08.1 Rheumatic disorders of both mitral and tricuspid valves (principal); I70.0 Atherosclerosis of aorta; I48.91 Unspecified atrial fibrillation; I10 Essential (primary) hypertension
CPT/HCPCS: 93306

== ENCOUNTER → 2021-04-18 11:19 | Outpatient (CLI) | payer MEDICARE, OTHER, SELFPAY ==
[2019-12-28 16:40] VITALS: BMI 35.5
[2021-04-18 13:39] LABS: COVID19 -Nasal RAPID Negative (Negative)
== END ==
PROVIDERS: Family Provider Nurse Practitioner Gerontology; PCP Nurse Practitioner Family; Visit Provider Nurse Practitioner Family
DX: Z20.822 Contact with and (suspected) exposure to COVID-19 (principal)
CPT/HCPCS: 87635; C9803

== ENCOUNTER → 2021-04-20 10:17 | Outpatient (CLI) | payer MEDICARE, OTHER, SELFPAY ==
[2019-12-28 16:40] VITALS: BMI 35.5
--- NOTE | 2021-04-20 11:44 | PM.TREADMILL ---
Cardiac Stress Test Report Referral & Results Date Patient Seen: 04/20/21 Time Patient Seen: 11:44 Requesting provider: Georgia Eaton Indication: Essential hypertension, atrial fibrillation, dyspnea Rest ECG: Atrial fibrillation/flutter Procedure Note: After Lexiscan injection minimal dyspnea, no chest discomfort After Lexiscan injection had T wave inversion in II, III, aVF, V4-V6 No ectopy Impression: Equivocal Lexiscan injection Nuclear images pending Please note: Actual ECG tracings can be found in the PACS system.
--- NOTE | 2021-04-23 20:58 | DI.NM.S_ITS ---
DATE OF SERVICE: 04/20/2021 PROCEDURE: Pharmacological perfusion study INDICATIONS: Shortness of breath with persistent atrial fibrillation. RADIOPHARMACEUTICAL: 27.4 millicurie technetium-99m Myoview IV was injected at stress and 19.4 millicurie technetium-99m Myoview IV was injected at rest. CARDIAC STRESS: The patient underwent IV Lexiscan perfusion study under the supervision of an attending staff, as per standard protocol. The patient remained hemodynamically stable. Baseline EKG revealed atrial fibrillation with some nonspecific ST-T changes. During Lexiscan, patient remained having nonspecific ST-T changes and occasional PVCs. No chest discomfort. No reversal agent needed. RAW DATA: There is adequate myocardial uptake. GATED STUDY: Resting LV ejection fraction 81 and stress LV ejection fraction 86 percent. No obvious wall motion abnormalities. Resting end-diastolic volume 70 mL. TID ratio 0.59, which is within normal limits. Lung/heart ratio 0.27, which is within normal limits. MYOCARDIAL PERFUSION: The stress supine and resting supine images were compared to each other. Both the images revealed normal myocardial perfusion. CONCLUSION: I will call this study a normal myocardial perfusion study. Left ventricular function is preserved. Baseline atrial fibrillation with controlled ventricular rate. Overall, this is a low-risk myocardial perfusion study. Junie Contreras - Candida/lana doc#: [id number]/job#: [id number] dd: 04/23/2021 12:51:00 dt: 04/23/2021 20:25:00 DICTATING /COPIES TO: Georgia Eaton MD COPIES MNE: BECKY;
== END ==
PROVIDERS: Family Provider Nurse Practitioner Gerontology; PCP Nurse Practitioner Family; Referring Provider Internal Medicine Cardiovascular Disease; Visit Provider Internal Medicine Cardiovascular Disease
DX: I10 Essential (primary) hypertension (principal); I48.19 Other persistent atrial fibrillation; R06.02 Shortness of breath; R06.00 Dyspnea, unspecified
CPT/HCPCS: 78452; 93017; A9502; J2785

== ENCOUNTER → 2022-01-28 13:04 | Outpatient (CLI) | payer MEDICARE, OTHER, SELFPAY ==
[2019-12-28 16:40] VITALS: BMI 35.5
[2022-01-28 14:51] LABS: COVID19 -Nasal RAPID Negative (Negative)
== END ==
PROVIDERS: Family Provider Nurse Practitioner Gerontology; PCP Nurse Practitioner Family; Visit Provider Family Medicine Sleep Medicine
DX: Z20.822 Contact with and (suspected) exposure to COVID-19 (principal)
CPT/HCPCS: 87635; C9803

== ENCOUNTER 2022-01-31 07:33 | Observation (INO) | payer MEDICARE, OTHER, SELFPAY ==
[2019-12-28 16:40] VITALS: BMI 35.5
[2022-01-15 12:33] VITALS: BMI 31.7
--- NOTE | 2022-01-28 17:15 | SUR.PREOP ---
Spoke with patient for pre-op phone call. Had cardiac clearance on 01/[address] Keating (?Spelling) who told patient she could stop her Amiodorone on Friday and take a few days off and then start Coreg. Pt states she was concerned about senior care side effects of Amiodorone but does not have any current side effects. Patient planned to start new prescription for Coreg morning of surgery. Spoke with Dr Coffman, explained situation. She recommended that patient restart Amiodorone today and take again in morning prior to surgery. That she can change her meds and start the Coreg at a later date. Called patient back and informed her. She agreed to this plan and thought it was a good idea.
[2022-01-29] VITALS (14 sets, daily range): BP systolic 111–186; BP diastolic 52–97; PULSE 63–85; RESP 14–18; TEMP 35.9–36.9; O2SAT 94–100; BMI 32.1
--- NOTE | 2022-01-29 | DI.RAD.S_ITS ---
PROCEDURE: XR PELVIS 1-2V INDICATIONS: Inter-Op TECHNIQUE: Intra-operative view of the pelvis and hip acquired. COMPARISON: [facility], CR, XR PELVIS 1-2V, 12/28/2019, 12:40. [facility], CR, XR PELVIS WITH LATERAL HIP LEFT, 07/25/2021, 9:15. FINDINGS: Bones: Intraoperative devices prior to placement of arthroplasty prostheses are in expected positions on the left. No fractures or suspicious bony lesions. Prior right hip arthroplasty hardware is seen. Soft tissues: Overlying surgical retractors are present, along with other intraoperative changes. IMPRESSION: Normal intraoperative examination. Dictated by: Eleazar Rivas M.D. on 01/29/2022 at 12:41 Approved by: Eleazar Rivas M.D. on 01/29/2022 at 12:42
--- NOTE | 2022-01-29 06:00 | DI.RAD.S_ITS ---
PROCEDURE: XR HIP W PEL IF DONE LT 2V INDICATIONS: ANDI TECHNIQUE: AP pelvis with lateral view(s) of the left hip(s). COMPARISON: [facility], , XR HIP W PEL IF DONE RT 2V, 12/28/2019, 14:22. FINDINGS: Bones: Patient is status post left total hip arthroplasty with anatomic left hip alignment. There is also prior right total hip arthroplasty with anatomic alignment. Pelvic ring appears intact. No suspicious bony lesions. Soft tissues: Expected postsurgical changes are seen in left hip soft tissue. IMPRESSION: Postop changes from left total hip arthroplasty with anatomic left hip alignment. Dictated by: Akil Crad M.D. on 01/29/2022 at 14:09 Approved by: Akil Card M.D. on 01/29/2022 at 14:09
[2022-01-29] MEDS: ACETAMINOPHEN 325 MG TABLET 975 MG PO (09:03)
[2022-01-29] MEDS: CELECOXIB 200 MG CAPSULE PO (09:04)
[2022-01-29] MEDS: LACTATED RINGERS 1,000 ML 42 ML IV (09:06)
[2022-01-29] MEDS: VANCOMYCIN 1,000 MG/200 ML PIGGYBACK 200 MG IV (09:57)
--- NOTE | 2022-01-29 11:09 | PM.PREOP ---
Pre-operative Note COVID-19 COVID-19 status: Negative Interval Note History & Physical reviewed/Exam performed by Physician: Yes Changes to H&P: No
--- NOTE | 2022-01-29 11:10 | P.OP_ITS ---
Operative Date/Time/Diagnoses Date of procedure: 01/29/22 Time of procedure: 11:25 Pre-op diagnosis: left hip OA Post-op diagnosis: same Procedure & Clinicians Procedure: Left total hip arthroplasty posterior approach Same procedure as scheduled: Yes Indications: The patient has had progressively worsening left hip pain with radiographic lee ann nges consistent with arthritis. Non-operative management has failed and the patient has requested total hip replacement. The risks, benefits and alternatives to surgery were discussed with the patient prior to proceeding. Risks discussed included, but were not limited to, failure to relieve pain, leg length discrepancy, dislocation, stiffness, infection, nerve damage, deep venous thrombosis, pulmonary embolism, stroke, coma, heart attack, permanent paralysis and , as well as the potential need for eventual revision of the prosthetic. 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 The patient received pre-operative antibiotics and was taken to the operating room and placed on the operative table in the right lateral decubitus position after satisfactory anesthesia. A websphere commerce architect out was performed. The left leg was pr epared from the ankle to the iliac crest with ChloroPrep in the usual fashion and draped through sterile drapes. The hip was approached through an approximately 20 cm incision centered over the greater trochanter and curving gently posteriorly as it went proximally. This was carried sharply to the fascia tresa, which was divided and retracted with a self retaining retractor. The trochanteric bursa was excised with care being taken to avoid the sciatic nerve, which was identified and protected throughout the case. The short external rotators were incised and the capsulomuscular flap was raised and tagged for later repair. The hip was dislocated, and a femoral neck osteotomy performed approximately 15 mm above the lesser trochanter. Retractors were placed around the femur. The canal was opened with a box cutting osteotome, followed by a T handled reamer and a lateralizing reamer. The chili pepper broach was then used, followed by sequential broaching until there was good stability of the broach in the femur. Retractors were placed to expose the acetabulum. The labrum and central soft tissues were removed. Reaming was performed initially going up in 2 mm increments, then 1 mm increments until good bite was obtained with an odd sized reamer. The cup 1 mm larger than the last reamer was then inserted using the appropriate anteversion guides. It was further stabilized with a single screw. A trial neutral liner was placed. The broach was placed in the canal. A trial head and neck were then placed and the hip relocated and checked for leg length and stability. An intraoperative film confirmed the component position and no evidence of fracture. The patient was stable in the position of sleep, of squatting, and could be put through a range of motion with 45 degrees internal rotation without dislocation. At 90 degrees flexion, internal rotation to 80? was possible before dislocation. This was felt to be satisfactory and the appropriate components were opened, and the trials were removed. The acetabular liner was impacted into position. The final stem was then impacted into the prepared femoral canal. A brief Betadine soak was performed while trialing with head options. The hip was meticulously irrigated with normal saline. Finally the femoral head was impacted onto the stem. The acetabulum was cleared of all material and the hip relocated one final time. The capsulomuscular flap was then repaired to the greater trochanter though an awl hole using the tag sutures. The short external rotators were repaired with a nonabsorbable suture. A deep drain was placed and brought out anteriorly. The fascia tresa was closed with Vicryl. The subcutaneous layer was closed with barbed sutures and SteriStrips. An Aquacel Ag dressing was applied and the patient was taken to recovery having tolerated the procedure well. Complications: none Post-operative Condition: stable Disposition: Acute Care Plan for aftercare: The patient will be maintained on a standard total hip replacement protocol with weight bearing as tolerated and posterior hip precautions. The patient will receive coumadin and sequential compression devices for DVT prophylaxis. The patient will be discharged home when safe for the home environment.
[2022-01-29] MEDS: CEFAZOLIN 2 GM/20 ML SYRINGE IV ×2 (11:54→19:37)
[2022-01-29] MEDS: BUPIVACAINE 0.25% (PF) 60 ML, EPINEPHrine 0.3 MG INJ (12:16)
[2022-01-29] MEDS: BUPIVACAINE LIPOSOME 266 MG/20 ML VIAL INJ (12:17)
[2022-01-29] MEDS: SODIUM CHLORIDE IRRIG SOLUTION 250 ML, POVIDONE-IODINE SPONGE STICKS 1 APPLIC IRR (12:17)
[2022-01-29] MEDS: TRANEXAMIC ACID 1,000 MG VIAL 2000 MG INJ ×2 (12:17→13:14)
--- NOTE | 2022-01-29 14:22 | SUR.PHASEI ---
1420-clarified with Dr Madera-no clamping hemovacs . hemovac unclamped prior to transfer.
[2022-01-29] MEDS: OXYCODONE IR 5 MG TABLET PO ×2 (15:37→19:34)
[2022-01-29] MEDS: LACTATED RINGERS 1,000 ML 125 ML IV (15:38)
--- NOTE | 2022-01-29 16:00 | PC.NURSE ---
Addendum entered by Mary Fraga R.N. 01/29/22 16:51: Gave patient some oxycodone, tylenol, and Ibuprofen for discomfort. She is tolerating this and ice to her l.hip. Original Note: Assess- Patient is alert and oriented x3, she had a l.total hip arthroplasty. Dressing with aquacel is cdi, Patient has feeling to her knee. Complained of 6/10 pain, given oxycodone and ice for comfort. in room, and patient is tolerating po and fluids. CMS to l.hip wnl and ppx2.
[2022-01-29] MEDS: ACETAMINOPHEN 325 MG TABLET 650 MG PO ×2 (16:22→20:10)
[2022-01-29] MEDS: IBUPROFEN 400 MG TABLET PO ×2 (16:23→20:09)
[2022-01-29] MEDS: OXYBUTYNIN 5 MG TABLET 2.5 MG PO (20:07)
[2022-01-29] MEDS: CALCIUM CARBONATE 500 MG TAB PO (20:10)
[2022-01-29] MEDS: LOSARTAN 50 MG TABLET PO (20:11)
[2022-01-29] MEDS: DOCUSATE 100 MG CAPSULE PO (20:12)
[2022-01-29] MEDS: cloNIDine 0.1 MG TABLET PO (21:15)
[2022-01-30] VITALS (10 sets, daily range): BP systolic 127–142; BP diastolic 71–79; PULSE 62–82; RESP 16–20; TEMP 36.2–36.6; O2SAT 95–100
[2022-01-30] MEDS: LACTATED RINGERS 1,000 ML 125 ML IV (00:04)
[2022-01-30] MEDS: IBUPROFEN 400 MG TABLET PO ×6 (00:04→21:14)
[2022-01-30] MEDS: CEFAZOLIN 2 GM/20 ML SYRINGE IV (03:42)
[2022-01-30] MEDS: DOCUSATE 100 MG CAPSULE PO ×2 (09:05→21:12)
[2022-01-30] MEDS: CALCIUM CARBONATE 500 MG TAB PO ×2 (09:05→16:53)
[2022-01-30] MEDS: carBAMazepine 200 MG TABLET PO ×4 (09:06→21:13)
[2022-01-30] MEDS: ACETAMINOPHEN 325 MG TABLET 650 MG PO ×3 (09:06→21:14)
[2022-01-30] MEDS: OXYBUTYNIN 5 MG TABLET 2.5 MG PO ×2 (09:07→21:11)
[2022-01-30] MEDS: MULTIVITAMIN 1 TABLET 1 TAB PO (09:07)
[2022-01-30] MEDS: LOSARTAN 50 MG TABLET PO ×2 (09:07→21:12)
[2022-01-30] MEDS: AMIODARONE 200 MG TABLET 100 MG PO (09:08)
[2022-01-30] MEDS: cloNIDine 0.1 MG TABLET PO ×2 (09:09→21:13)
--- NOTE | 2022-01-30 09:14 | CM.DANOTE ---
Addendum entered by Sherron Mckinney R.N. 01/30/22 15:21: Patient is staying another day, according to P.T. notes, patient is a max assist. Spoke to patient, and brought in a Medicare Choice List, and she does not want to go to skilled, but is willing to have home health. Patient indicated, the anesthesia had not quite worn off, which is why I didn't do well with P.T. Patient wants to see how she does tomorrow. She has no preferences upon any home health agencies. She and are planning on staying at [place] until Friday night, and going back to [place]. Let her know that it's uncertain as to when home health would see her at this time. Will see how she does with P.T, and may follow up with home health. Original Note: DCP: Case received, EMR reviewed and met with patient. Spouse, Lj, was also at bedside. Was able to obtain information regarding patient's baseline activity status prior to hospitalization. DCP assessment completed with information currently available. Patient is a 76 year old female who admitted yesterday morning to the care of the orthopedic team. PCP: Dr. Hayes. Payer: confirmed: Medicare/[facility]. Patient came to the hospital via private vehicle for a surgical procedure. Patient had left total hip arthroplasty. Patient has history of osteoarthritis. Met with patient and spouse in her room. She is alert and oriented. Her and her spouse reside in [place]. She does have a cane and walker for home use. She indicated that there are 3 steps to get into the home. will be able to assist her when she goes home. P: Patient is to be discharged home today pending working with P.T. Sherron Mckinney RN/County Director Discharge Planning/Care Management Advanced directive, confirm from FAMILY Start: 01/29/22 14:58 Freq: Q24H Status: Active Protocol: Document 01/29/22 15:14 CLL (Rec: 01/29/22 15:20 CLL [id number]) Co-Signed By An Osman RN Advance Directive, confirm on record Time 15:19 Person contacted patient Copy received No CM Discharge Assessment Start: 01/30/22 09:12 Freq: Status: Active Protocol: Document 01/30/22 09:12 VM (Rec: 01/30/22 09:14 [id number]) Discharge Planning Assessment Assigned Tutoring Clinician Sherron Mckinney RN/County Director Advance Directives? Yes Advance Directives on File No History Provided By Patient,Medical Record Prior Living Arrangements House Household Members spouse Type of transporation used prior to Drives own vehicle admit Independent with ADL's Yes Is patient alert and oriented? Yes Caregiver for Another No Patient/Family Preference OP PT Therapy Barriers to Discharge No Discharge Plan Home Transportation Arrangement Spouse Referrals Initiated None needed Whiteboard Updated in Patient Room with Yes name and ext. # of Tutoring Clinician Review Status In Process Next Review Type Continued Stay Review Pre-Anesthesia Assessment Start: 01/15/22 12:33 Freq: Status: Complete Protocol: Document 01/15/22 12:33 [facility] (Rec: 01/15/22 13:51 [facility] [id number]) Pre-Anesthesia Assessment Patient Information Reviewed Via Phone Assessment Assessment Completed With Patient Comment Pt states labs/ECG done w/ cardiology, COVID screen @ 01/28/22 Primary Care Provider Eleni Hayes Seen Specialist in Last 12 Months Yes Specialist Seen Grants Specialist,Orthopedist Primary Language German Preferred Language German Underground Utility Locator Required No Height 5 ft 4.5 in Weight 188 lb Body Mass Index (BMI) 31.7 Hearing Ability Normal Visual Assist None,Magnifying Glass Dentition Type Teeth, Natural Present Barriers to Learning None Other Aids No Hx Anesthesia Reactions No Hx Family Anesthesia Reaction No Hx Malignant Hyperthermia No Hx Blood Transfusions No Hx Blood Transfusion Reaction No Anesthesia Review Requested Yes: Surgeon requested re: Cardiac Marketing Instructor No alcohol intake current alcohol intake frequency a few times a week Smoking Status Never smoker Substance Use Type does not use Pain Present Pain Reported Musculoskeletal Symptoms Abnormal Gait,Difficulty Walking,Joint Pain History of Falling (Recent or History of Yes ) Patient is completely paralyzed or No completely immobile Prosthesis or Orthotic Device Cane,Front Wheel Walker Mental Status Oriented to own ability Is patient on oxygen? No Does patient have MCNULTY/SOB Yes Hx Sleep Apnea No CPAP/BIPAP use not prescribed Currently Taking a Beta Darvin No Can You Climb a Flight of Stairs Without No: r/t deconditioning per pt SOB Hx Chest Pain Yes: Nothing currently Hx SOB Yes Hx Syncope or Dizziness No Anti-Coagulant Therapy Yes: Warfarin-hold 5-7 days, lovenox bridge per Cardiology Has a Grants Specialist Yes: Dr. Eaton-last visit Cardiac Testing No Hx Pacemaker/ICD No Pacemaker Rep Required? No Comment Cardiac records scanned Diet Type At Home Regular dysphagia No Bladder Pattern Urgency Urinary Catheter Present No Hx Urinary Self Catheterization No Diabetes No Patient No Lactating No Presence of External or Internal Medical Yes: Screws in Lt ankle, right Devices hip Have you had any close contact with No someone diagnosed with COVID-19? Received a COVID vaccine? Yes Received all doses? Yes Marital Status Lives With spouse Prior Living Arrangements House Number of Floors (Floors) One Floor Support System Spouse Does the Patient Have Assistance After Yes Surgery Patient Discharge Plan Description Return Home Comment Pt not advised on length of stay per surgeon Feels Safe in Current Environment Yes Been Physically Hurt or Threatened By a No Person in Current Environment Do you have thoughts of harming yourself None or others? Are you currently considering suicide? No Do you have a plan to hurt yourself or No Plan others? Do You Have Any Spiritual Beliefs That No May Affect Your HC Choices? Do You Have Any Cultural Practices That No May Affect Your HC Choices? Comment Holiness Who Can We Speak to About Patient's Care Family, friends Identifying Code for Release of Patient Declines to issue Information Health Care Proxy/Next of Kin Lj () Health Care Proxy Emergency Contact Name Lj () Emergency Contact Advance Directives? Yes Advance Directives on File No Power of Route Supervisor Yes Power of Route Supervisor Name Lj Power of Route Supervisor PAC Instructions Do not shave/clip surgical site,Durable medical equipment ,Medications to take/avoid, Nasal antibiotic,No ETOH/ petroleum product on skin DOS, NPO,Post-op transportation,Pre -surgical wash,Sensory aids, Sturdy shoes/comfortable clothes,Do not bring valuables and remove jewelry
--- NOTE | 2022-01-30 09:35 | PT.IIE ---
Current Diagnoses Unilateral primary osteoarthritis, left hip (01/29/22) Surgery Performed Operation Date: 01/29/22 10:30 Actual Procedures p Total Hip Arthroplasty(Left) - Sharda Madera MD Medical History (Last Reviewed 01/30/22 @ 10:16 by Keith Smith PA-C) Acquired valgus deformity of knee Afib Arthritis Chronic cough Easy bruisability Epilepsy Gait instability H/O: HTN (hypertension) History of cardioversion (05/08/21) History of hyperlipidemia Hives Hyponatremia Left wrist fracture (09/01/21) Mobitz I Remove/insert IUD (~1975) Right knee DJD Seizures Physical Therapy Inpatient Evaluation/Re-Eval M1 PT/OT-IP Prior Functional Status Start: 01/30/22 12:14 Freq: NEEDED Status: Active Protocol: Document 01/30/22 09:35 AB (Rec: 01/30/22 12:29 AB [id number]) Medical Review Prior Functional Status Medical History Reviewed Yes Communication able to make needs known Mobility and Gait pt stated that she is modified independent with all mobilities and ambulation using FWW indoors but uses a SPC outdoors Social History Household Members spouse Living Arrangements House Number of Floors (Floors) One Floor Number of Stairs To Enter/Railing? pt will initially stay in her daughter's house before going back to her own house Daughter's house is one level with 5 steps to enter with wide rails Home Environment Standard Height Toilet,Tub/ Shower Home Equipment Front Wheel Walker,Straight Cane,Raised Toilet Seat w/ Armrests Additional Social History Comment pt stated that she plans to sponge bathe when she is at her daughter's house and will take a shower when she goes back to her own home where she has a walk in shower M2 PT-IP Current Condition Start: 01/30/22 12:14 Freq: NEEDED Status: Active Protocol: Document 01/30/22 09:35 AB (Rec: 01/30/22 12:29 AB [id number]) Physical Therapy Current Condition Current Condition Evaluation Date 01/30/22 Treatment Diagnosis s/p L ANDI posterior approach; difficulty in walking Onset Date 01/29/22 M3 PT-IP Subjective Start: 01/30/22 12:14 Freq: NEEDED Status: Active Protocol: Document 03/30/22 09:35 AB (Rec: 01/30/22 12:29 [id number]) Subjective Physical Therapy Visit Type Type Initial Evaluation Visit Start Time 09:35 Visit Stop Time 10:31 Total Visit Minutes 56 Number of TAX LAWYER Visits 0 Physical Therapy Visit Comments Patient Comments agreeable to do PT Therapy Pain Assessment Pain When Pain Assessed At Rest Pain Present Pain Present Pain Reported Location Right Hip Intensity 1 Scale Used c/o increase pain during mobility but pain level not stated Pain Behaviors Facial Grimacing,Guarding Pain Management Techniques Distraction,Modification of Treatment,Re-positioning, Timing of Activity with Medications M4 PT-IP Mobility and Gait Start: 01/30/22 12:14 Freq: NEEDED Status: Active Protocol: Document 01/30/22 09:35 (Rec: 01/30/22 12:29 [id number]) PT-Bed Mobility Assessment Supine to Sit Supine to Sit Total Assistance,1 Person Assistance,2 Person Assistance ,Bedrails Scooting Scooting to Edge of Bed Maximum Assistance PT-Transfer Assessment Sit to and From Stand Sit to and from Stand Maximum Assistance,2 Person Assistance,Use of Upper Extremities Equipment Transfer Assistive Device Gait Belt,Front Wheeled Walker Orthotic/Prosthetic Devices or Brace: No Comments Mobility Comments pt in bed and agreed to do PT. spouse in room. educated pt and spouse regarding posterior hip precautions. pt with memory issues and requires cues for safety and maintaining precautions. completed supine to sit max A x 1-2 and max cues. pt is very impulsive and anxious and requires max A and max cues to be able to maintain hip precautions. pt max A for scooting to EOB. tends to lean posteriorly. pt with difficulty following directions and requires repeated instructions and cues . completed sit to stand max A x 2 and max cues. pt not with increase L knee flexion and cued for quads activation but pt unable to follow and not following instructions. assisted back to sitting max A x 2 and max cues. pt is not safe to transfer due to decrease ability to follow directions and is impulsive. informed nurse that pt is a mechanical lift transfer at this time. assisted pt back to bed total A x 2 for sit to supine. positioned in bed total A x 2. call light and table placed within reach. Gait Assessment Comments Gait Comments unable at this time PT-Balance Assessment Sitting Balance and Reactions Static Sitting Balance Ability Fair Dynamic Sitting Balance Ability Poor Standing Balance and Reactions Static Standing Balance Ability Poor Dynamic Standing Balance Ability Poor Device Used FWW M5 PT-IP Objective Assessments Start: 01/30/22 12:14 Freq: NEEDED Status: Active Protocol: Document 01/30/22 09:35 AB (Rec: 01/30/22 12:29 AB [id number]) Orientation Orientation/Cognition Level of Alertness Confusional State Orientation Name,Place,Situation Language Function Ability No Deficits Noted Safety Awareness Decreased Safety Awareness Memory Description Short Term Impaired,Spooler Operator Automatic Impaired Gross Range of Motion Lower Extremity ROM Assessment Within Functional Limits Strength Lower Extremity Strength Assessment Left Impaired Hip 3-/5 Knee 3+/5 Sensation Assessment Sensation Gross Sensation Left LE Impaired Comments Sensation Comments pt stated that LLE still feels a little numb and weak Muscle Tone Muscle Tone WNL Yes M6 PT-IP Treatment Start: 01/30/22 12:14 Freq: NEEDED Status: Active Protocol: Document 01/30/22 09:35 AB (Rec: 01/30/22 12:29 AB [id number]) Physical Therapy Treatment Exercises Exercises Heel Slides Education Education Provided Precautions,Weight Bearing Status,Post-Op Packet,Safety M7 PT-IP Assessment and Plan Start: 01/30/22 12:14 Freq: NEEDED Status: Active Protocol: Document 01/30/22 09:35 AB (Rec: 01/30/22 12:29 AB [id number]) PT Summary Assessment and Plan Potential Rehabilitation Potential Fair Status of Condition at Evaluation Evolving Summary Impairments Pain,ROM,Strength,Balance, Coordination,Sensation,Tone, Cognition,Bed Mobility, Transfers,Gait,Activity Tolerance Assessment Summary pt requiring max A x 2 to total A x 2 with mobility and unable to complete transfer or ambulate at this time. will continue to assess progress but pt needs SNF rehab at this time. informed pt and spouse . Goals Bed Mobility Goal Standby Assistance Transfer Goal Standby Assistance,Front Wheeled Walker Gait Goal Standby Assistance,Front Wheel Walker Gait Distance 100 Other Goals improve ambulation using FWW 150 ft SBA up/down 5 steps 1 rail SBA Days to Meet Goals 10 Frequency of Treatment Frequency Of Treatment Twice a Day Treatment Plan Physical Therapy Treatment Plan Bed Mobility Training,Transfer Training,Gait Training, Therapeutic Exercise,Balance Retraining,Post Op Education, Discharge Planning,Hot or Cold Pack,Neuromuscular Re-ed, Coordination Retraining,Manual Therapy Precautions Posterior Hip Precautions No Hip Flexion > 90 degrees,No Hip Internal Rotation,No Hip Adduction Weight Bearing Status Weight Bearing Status Weight Bear as Tolerated Allowed Weight Bearing Amount (enter % LLE WBAT or #) (%) Recommendations To Nursing Amount of Assist Needed Mechanical Lift Discharge Recommendations PT Discharge Recommendations SNF Rehab Transportation Needs at Discharge Wheelchair/Cabulance,Stretcher /Ambulance
--- NOTE | 2022-01-30 10:10 | PM.DS.1 ---
History of Present Illness History of Present Illness Date Patient Seen: 01/30/22 Time Patient Seen: 10:11 Chief complaint: Hip pain Narrative: Patient's pain is mild. Denies fever or chills. No nausea vomiting Discharge Providers Provider Discharge Date: 01/30/22 Primary care physician: Eleni Hayes DO Consults: 01/15/22 13:51 Consult to Anesthesiology Routine Comment: Consulting Provider: Anesthesiologist Reason for consultation: Surgeon requested re: Cardiac 01/29/22 06:00 Consult to Anesthesiology Routine Comment: Consulting Provider: Anesthesiologist Reason for consultation: Regional block for post operative pain control 01/29/22 14:22 Consult to Discharge Planning Routine Comment: Consult to Physical Therapy Evaluate & Treat Comment: Physician Instructions: post op ANDI protocol Consult to Respiratory Therapy Evaluate & Treat Comment: Physician Instructions: Evaluate and treat Discharge provider: Keith Smith PA-C Summary Hospital Course Discharge Diagnosis: Left hip osteoarthritis Hospital Course: Left total hip arthroplasty posterior approach Same procedure as scheduled: Yes Indications: The patient has had progressively worsening left hip pain with radiographic changes consistent with arthritis. Non-operative management has failed and the patient has requested total hip replacement. The risks, benefits and alternatives to surgery were discussed with the patient prior to proceeding. Risks discussed included, but were not limited to, failure to relieve pain, leg length discrepancy, dislocation, stiffness, infection, nerve damage, deep venous thrombosis, pulmonary embolism, stroke, coma, heart attack, permanent paralysis and , as well as the potential need for eventual revision of the prosthetic. 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 Patient consented to the same. Doing well and in stable condition. DC home today after PT. Status at Discharge Cognitive/behavioral status at discharge: at baseline, oriented Functional status at discharge: uses cane/walker Overall status at discharge: patient is progressing back to baseline Exam Vital Signs (past 8 hours): - 01/30/22 04:26 01/30/22 08:28 01/30/22 09:07 Temperature 97.8 F 97.6 F Pulse Rate 82 69 69 Respiratory Rate 16 20 Blood Pressure 142/77 H 135/78 135/78 Pulse Oximetry 95 98 01/30/22 09:09 Temperature Pulse Rate 69 Respiratory Rate Blood Pressure 135/78 Pulse Oximetry Oxygen Delivery Method Room Air Oxygen Flow Rate 0 Narrative Exam Narrative: Resting comfortably in bed. In no distess. Dressing clean and dry. Motor function intact bilat LE, Sensation intact bilat LE. Const General: cooperative Orientation: oriented x3 Resp Effort & Inspection: normal respiratory effort Objective Labs Result Diagrams: 01/30/22 04:30 Labs: Laboratory Results - last 24 hr 01/30/22 04:30 Hgb 12.0 Hct 35.0 L PFSH Medical History Acquired valgus deformity of knee Afib Arthritis Chronic cough Easy bruisability Epilepsy Gait instability H/O: HTN (hypertension) History of cardioversion (05/08/21) History of hyperlipidemia Hives Hyponatremia Left wrist fracture (09/01/21) Mobitz I Remove/insert IUD (~1975) Right knee DJD Seizures Surgical History History of ankle surgery (~1999) History of colonoscopy (~2013) History of total right hip arthroplasty (12/28/19) Hx of arthroscopy of right knee (~2014) Status post cataract surgery Family History Father No problems noted. Mother No problems noted. Brother Epilepsy Eye problems Social History marital status: household members: spouse Smoking Status: Never smoker alcohol intake: current Discharge Assessment & Plan Assessment and Plan Assessment: Stable status post ANDI, posterior approach, left Plan of Treatment: Mobilize with PT Posterior hip precautions. Lovenox bridge to start tomorrow. Discharge Plan Discharge Plan Patient Disposition: Home Discharge orders & Medications Discharge Orders: Discharge (Order); Ordered 01/30/22 Ordered By: Keith Smith Prescriptions: New acetaminophen 325 mg Tablet 650 mg PO TID Qty: 60 0RF oxycodone 5 mg Tablet 10 mg PO Q3HR PRN (Reason: Pain, Severe (7-10)) Qty: 60 0RF Continued amiodarone 200 mg Tablet 100 mg PO DAILY 0RF warfarin 2.5 mg Tablet 2.5 mg PO DAILY 0RF Label Comments: Takes 1 1/2 tabs on and Friday carvedilol 3.125 mg tablet 3.125 mg PO BID 0RF Label Comments: Hasn't started yet - plans to start in one week. TAKE 1 TABLET BY MOUTH TWICE DAILY WITH MEALS clonidine HCl 0.1 mg tablet 0.1 mg PO BID 0RF Label Comments: TAKE 1 TABLET BY MOUTH TWICE DAILY Zyrtec 10 mg Capsule 20 mg PO BID PRN (Reason: Hives) 0RF Label Comments: 2 in am 2 at hs fluticasone propionate [Flonase Allergy Relief] 50 mcg/actuation spray,suspension 1 spray INTRANASAL DAILY PRN (Reason: Seasonal allergies) 0RF losartan 50 mg Tablet 50 mg PO BID 0RF calcium carbonate [Calcium 500] 500 mg calcium (1,250 mg) Tablet 500 mg PO TID 0RF oxybutynin chloride 5 mg Tablet 2.5 mg PO BID 0RF multivitamin Capsule 1 cap PO QAM 0RF carbamazepine [Tegretol] 200 mg Tablet 200 mg PO QID 0RF Discontinued acetaminophen [Tylenol Extra Strength] 500 mg tablet 1,000 mg PO BID PRN (Reason: Pain) 0RF Follow up/Referrals: Eleni Hayes DO [Primary Care Provider] - Sharda Madera MD [Physician] - (2 weeks) Diet/Activity/Treatments Activity: Posterior hip precautions Cold/Heat Therapy: ice as needed Other treatments: Start lovenox bridge 01/31/22 Skin/Wound/Dressing Care Report to your healthcare provider any signs of infection, such as:: chills, fever, increased pain, unusual drainage and unusual redness Dressing: keep dressing clean and dry Visit Report/Discharge Packet Instructions: DI for Hip Replacement Stand Alone Forms: Surgery Discharge Discharge Data Primary Care Provider: Eleni Hayes Attending Provider: Sharda Madera Quality VTE Deep Vein Thrombosis/Pulmonary Embolism Present on Admission: No
--- NOTE | 2022-01-30 14:18 | PT.IPTN ---
Current Diagnoses Unilateral primary osteoarthritis, left hip (01/29/22) Surgery Performed Operation Date: 01/29/22 10:30 Actual Procedures p Total Hip Arthroplasty(Left) - Sharda Madera MD Physical Therapy Treatment Note M2 PT-IP Current Condition Start: 01/30/22 12:14 Freq: NEEDED Status: Active Protocol: Document 01/30/22 09:35 AB (Rec: 01/30/22 12:29 AB [id number]) Physical Therapy Current Condition Current Condition Evaluation Date 01/30/22 Treatment Diagnosis s/p L ANDI posterior approach; difficulty in walking Onset Date 01/29/22 M3 PT-IP Subjective Start: 01/30/22 12:14 Freq: NEEDED Status: Active Protocol: Document 01/30/22 14:18 AB (Rec: 01/30/22 16:39 AB [id number]) Subjective Physical Therapy Visit Type Type Treatment Note Visit Start Time 14:18 Visit Stop Time 14:55 Total Visit Minutes 37 Number of MACHINE SNELLER Visits 0 Physical Therapy Visit Comments Patient Comments agreeable to do PT Therapy Pain Assessment Pain When Pain Assessed At Rest Pain Present Pain Present Pain Reported Location Right Hip Intensity 2 Scale Used Numeric (0 - 10) Pain Management Techniques Distraction,Modification of Treatment,Re-positioning M4 PT-IP Mobility and Gait Start: 01/30/22 12:14 Freq: NEEDED Status: Active Protocol: Document 01/30/22 14:18 AB (Rec: 01/30/22 16:39 AB [email or web address]) PT-Bed Mobility Assessment Supine to Sit Supine to Sit Minimal Assistance,Moderate Assistance PT-Transfer Assessment Sit to and From Stand Sit to and from Stand Maximum Assistance,2 Person Assistance,Use of Upper Extremities Equipment Transfer Assistive Device Gait Belt,Front Wheeled Walker Orthotic/Prosthetic Devices or Brace: No Transfers Transfer Destination Chair,Toilet Transfer Technique Stand Step Pivot Transfer Ability Level of Assist Maximum Assistance,2 Person Assistance,Use of Upper Extremities Comments Mobility Comments reviewed hip precautions with pt and pt continues to require cues. completed supine to sit min to mod A with HOB elevated. pt able to sit on EOB SBA. completed sit to stand max A x 2 and max cues and max A x 2 for standing balance using FWW. (+) L knee buckling requiring max A for stability and preventing knee from giving out. pt requesting to use the toilet and completed step transfer to bedside commode max A x 2 and max cues. pt is impulsive and needs max cues for safety and hip precautions for all tasks. completed sit to stand from the bedside commode max A x 2 and max cues and step transfer to the chair using FWW max A x 2 and max cues. pt stated that LLE contiues to be numb with whole leg numbness this morning but now in the afternoon is just numb halway from knee down to L foot. educated pt on LE exercises. positioned pt on the chair. call light and table placed within reach. Gait Assessment Comments Gait Comments unable at this time M5 PT-IP Objective Assessments Start: 01/30/22 12:14 Freq: NEEDED Status: Active Protocol: Document 01/30/22 09:35 AB (Rec: 01/30/22 12:29 AB [email or web address]) Orientation Orientation/Cognition Level of Alertness Confusional State Orientation Name,Place,Situation Language Function Ability No Deficits Noted Safety Awareness Decreased Safety Awareness Memory Description Short Term Impaired,Tank Hoop Bender Impaired Gross Range of Motion Lower Extremity ROM Assessment Within Functional Limits Strength Lower Extremity Strength Assessment Left Impaired Hip 3-/5 Knee 3+/5 Sensation Assessment Sensation Gross Sensation Left LE Impaired Comments Sensation Comments pt stated that LLE still feels a little numb and weak Muscle Tone Muscle Tone WNL Yes M6 PT-IP Treatment Start: 01/30/22 12:14 Freq: NEEDED Status: Active Protocol: Document 01/30/22 14:18 AB (Rec: 01/30/22 16:39 AB [email or web address]) Physical Therapy Treatment Exercises Exercises Heel Slides Education Education Provided Precautions,Weight Bearing Status,Safety M7 PT-IP Assessment and Plan Start: 01/30/22 12:14 Freq: NEEDED Status: Active Protocol: Document 01/30/22 14:18 AB (Rec: 01/30/22 16:39 AB [email or web address]) PT Summary Assessment and Plan Potential Rehabilitation Potential Fair Summary Impairments Pain,ROM,Strength,Balance, Coordination,Sensation,Tone, Cognition,Bed Mobility, Transfers,Gait,Activity Tolerance Progress Towards Goals Slow Progress due to Medical Issues,Slow Progress due to Activity Tolerance,Slow Progress - Other Assessment Summary pt requiring max A x 2 with standing and transfers using FWW and unable to ambulate at this time. (+) L knee buckling requiring max Ax2 for stability. will continue to assess progress but pt may require SNF rehab. Goals Bed Mobility Goal Standby Assistance Transfer Goal Standby Assistance,Front Wheeled Walker Gait Goal Standby Assistance,Front Wheel Walker Gait Distance 100 Other Goals improve ambulation using FWW 150 ft SBA up/down 5 steps 1 rail SBA Days to Meet Goals 10 Frequency of Treatment Frequency Of Treatment Twice a Day Treatment Plan Physical Therapy Treatment Plan Bed Mobility Training,Transfer Training,Gait Training, Therapeutic Exercise,Balance Retraining,Post Op Education, Discharge Planning,Hot or Cold Pack,Neuromuscular Re-ed, Coordination Retraining,Manual Therapy Precautions Posterior Hip Precautions No Hip Flexion > 90 degrees,No Hip Internal Rotation,No Hip Adduction Weight Bearing Status Weight Bearing Status Weight Bear as Tolerated Allowed Weight Bearing Amount (enter % LLE WBAT or #) (%) Recommendations To Nursing Amount of Assist Needed Mechanical Lift Discharge Recommendations PT Discharge Recommendations SNF Rehab Transportation Needs at Discharge Wheelchair/Cabulance,Stretcher /Ambulance
[2022-01-30] MEDS: WARFARIN 1 MG TABLET 2.5 MG PO (16:59)
[2022-01-31] MEDS: IBUPROFEN 400 MG TABLET PO ×4 (00:27→12:36)
[2022-01-31 05:00] VITALS: BP 147/74; PULSE 78; RESP 16; TEMP 36.6; O2SAT 97
--- NOTE | 2022-01-31 07:33 | PM.PNPO.1 ---
Subjective Subjective Date Patient Seen: 01/31/22 Time Patient Seen: 07:33 Interval history: Pain is mild. Denies fever chills. No nausea vomiting. Patient had difficulty mobilizing yesterday but was significantly improved yesterday evening. Exam Vital Signs (past 8 hours): - 01/31/22 05:00 Temperature 97.9 F Pulse Rate 78 Respiratory Rate 16 Blood Pressure 147/74 H Pulse Oximetry 97 Oxygen Delivery Method Room Air Oxygen Flow Rate 0 Narrative Exam Narrative: 76-year-old female resting comfortably in bed in no apparent distress. Dressing is Clean, dry, intact.. Motor functions intact bilateral lower extremities. Sensation grossly intact to light touch bilateral lower extremities. Const General: cooperative Orientation: alert Objective Labs Result Diagrams: 01/30/22 04:30 PFSH Medical History Acquired valgus deformity of knee Afib Arthritis Chronic cough Easy bruisability Epilepsy Gait instability H/O: HTN (hypertension) History of cardioversion (05/08/21) History of hyperlipidemia Hives Hyponatremia Left wrist fracture (09/01/21) Mobitz I Remove/insert IUD (~1975) Right knee DJD Seizures Surgical History History of ankle surgery (~1999) History of colonoscopy (~2013) History of total right hip arthroplasty (12/28/19) Hx of arthroscopy of right knee (~2014) Status post cataract surgery Family History Father No problems noted. Mother No problems noted. Brother Epilepsy Eye problems Social History marital status: household members: spouse Smoking Status: Never smoker alcohol intake: current Assessment & Plan Post-op Postoperative Procedures: Procedures Operation Date: 01/29/22 10:30 Actual Procedure Side Surgeon p Total Hip Arthroplasty Left Sharda Madera MD Postoperative day: 2 Postoperative status narrative: Improved Postoperative plan: routine post-op care Postoperative plan narrative: Mobilize with physical therapy Multimodal pain management Discharge home today after physical therapy if safe for home environment. Quality VTE Deep Vein Thrombosis/Pulmonary Embolism Present on Admission: No
[2022-01-31] MEDS: CALCIUM CARBONATE 500 MG TAB PO (08:11)
[2022-01-31] MEDS: ACETAMINOPHEN 325 MG TABLET 650 MG PO (08:11)
[2022-01-31] MEDS: AMIODARONE 200 MG TABLET 100 MG PO (08:11)
[2022-01-31 08:12] VITALS: BP 153/88; PULSE 76
[2022-01-31] MEDS: carBAMazepine 200 MG TABLET PO ×2 (08:12→12:36)
[2022-01-31] MEDS: cloNIDine 0.1 MG TABLET PO (08:12)
[2022-01-31] MEDS: DOCUSATE 100 MG CAPSULE PO (08:12)
[2022-01-31] MEDS: LOSARTAN 50 MG TABLET PO (08:12)
[2022-01-31] MEDS: OXYBUTYNIN 5 MG TABLET 2.5 MG PO (08:13)
[2022-01-31] MEDS: MULTIVITAMIN 1 TABLET 1 TAB PO (08:13)
[2022-01-31 09:15] VITALS: BP 153/88; PULSE 76; RESP 17; TEMP 36.6; O2SAT 96
--- NOTE | 2022-01-31 09:58 | PT.IPTN ---
Current Diagnoses Unilateral primary osteoarthritis, left hip (01/31/22) Surgery Performed Operation Date: 01/29/22 10:30 Actual Procedures p Total Hip Arthroplasty(Left) - Sharda Madera MD Physical Therapy Treatment Note M2 PT-IP Current Condition Start: 01/30/22 12:14 Freq: NEEDED Status: Active Protocol: Document 01/31/22 09:20 SP (Rec: 01/31/22 13:11 SP [id number]) Physical Therapy Current Condition Current Condition Evaluation Date 01/30/22 Treatment Diagnosis s/p L ANDI posterior approach; difficulty in walking Onset Date 01/29/22 M3 PT-IP Subjective Start: 01/30/22 12:14 Freq: NEEDED Status: Active Protocol: Document 01/31/22 09:20 SP (Rec: 01/31/22 13:11 SP [id number]) Subjective Physical Therapy Visit Type Type Treatment Note Visit Start Time 09:20 Visit Stop Time 09:58 Total Visit Minutes 38 Notes unavailable in early mid am for CGT. Vitals taken during tx: sit EOB: BP 132/67 HR 77 SaO2 96% on RA. nonsymptomatic throughout tx. Number of REFLEXOLOGIST Visits 1 Physical Therapy Visit Comments Patient Comments agreeable to do PT Therapy Pain Assessment Pain When Pain Assessed At Rest Pain Present Pain Present Pain Reported Location Right Hip Intensity 5 Scale Used Numeric (0 - 10) Description Aching,Radiating,Tender, Throbbing Pain Behaviors Facial Grimacing Pain Management Techniques Distraction,Modification of Treatment,Re-positioning, Timing of Activity with Medications M4 PT-IP Mobility and Gait Start: 01/30/22 12:14 Freq: NEEDED Status: Active Protocol: Document 01/31/22 09:20 SP (Rec: 01/31/22 13:11 SP [id number]) PT-Bed Mobility Assessment Supine to Sit Supine to Sit Standby Assistance Scooting Scooting to Edge of Bed Standby Assistance PT-Transfer Assessment Sit to and From Stand Sit to and from Stand Contact Guard Assistance,Use of Upper Extremities Equipment Transfer Assistive Device Gait Belt,Front Wheeled Walker Orthotic/Prosthetic Devices or Brace: No Transfers Transfer Destination Chair,Wheelchair Transfer Technique Stand Step Pivot Transfer Ability Level of Assist Contact Guard Assistance,Use of Upper Extremities Comments Mobility Comments Pt supine in bed when arrived. Instructed review post op ex: glut and quad set, heel slide approx 90 deg knee flexion x5 each. Supine>sit, scoot to EOB w/HOB flat SBA. Sit>stand SBA-CGA w/ FWW, progressed gait into hallway approx 120 ft w/c follow for safety assist if needed, suggested sit rest at 120 ft in w/c SBA due to demonstrated decreased LLE foot clearance and flexed posture, demonstrated decreased strength and activitiy tolerance. Pt completed 6 stairs with cuing for proper patterning then walked back to room bed SBA approx 150 ft w/ FWW w/c follow not needed. Stand>sit> supine SBA self able lift LLE into bed. Pt had call light and all needs in reach before left. REFLEXOLOGIST discussed given lot cues for safe gait and stair mgt, requested pm caregiver training at 1400 when discussed over phone end tx wants to work together for safety giving pt correct cuing . Will assess progress in pm. Gait Assessment Gait Gait Assistance Required: Standby Assistance,Contact Guard Assist Distance (Feet) 150 Able to Maintain Weight Bearing Status Yes During Gait Assistive Devices Assistive Device Gait Belt,Front Wheeled Walker Orthotic/Prosthetic Devices or Brace: No Gait Deviations General Gait Pattern Antalgic,Decreased Stride Length,Decreased Feet Clearance,Flexed Trunk,Wide Based Gait Factors Limiting Gait Function Factors Limiting Gait Function Decreased Activity Tolerance, Decreased Strength,Difficulty Following Directions,Limited Range of Motion,Pain,Poor Safety Awareness Comments Gait Comments Mod cues for decrease MACK, body closer rear FWW legs, slow controlled pacing to allow safe foot clearance, improve with cues. Stair Climbing Assessment Evaluation Level of Assist On Stairs Contact Guard Assistance, Minimal Assistance,1 Person Assistance Devices Stair Climbing Assistive Devices Straight Cane,Right Railing Technique/Endurance Stair Climbing Direction Ascend and Descend Stair Climbing Technique Step to Step Number of Steps Climbed 3 Stair Climbing Set # Repetitions (reps) 2 Comments Stair Climbing Comments Mod Cues for SPC step ahead ( on L w/ R HR) ascend and lead RLE, good knee flexion clearance step to. Descend lead LLE with SPC staying on same step improved trunk stability and confidence descending, step to patterning . PT-Balance Assessment Sitting Balance and Reactions Static Sitting Balance Ability Normal Dynamic Sitting Balance Ability Good Standing Balance and Reactions Static Standing Balance Ability Good Dynamic Standing Balance Ability Fair Device Used FWW M5 PT-IP Objective Assessments Start: 01/30/22 12:14 Freq: NEEDED Status: Active Protocol: Document 01/30/22 09:35 AB (Rec: 01/30/22 12:29 AB [id number]) Orientation Orientation/Cognition Level of Alertness Confusional State Orientation Name,Place,Situation Language Function Ability No Deficits Noted Safety Awareness Decreased Safety Awareness Memory Description Short Term Impaired,Mcfp Impaired Gross Range of Motion Lower Extremity ROM Assessment Within Functional Limits Strength Lower Extremity Strength Assessment Left Impaired Hip 3-/5 Knee 3+/5 Sensation Assessment Sensation Gross Sensation Left LE Impaired Comments Sensation Comments pt stated that LLE still feels a little numb and weak Muscle Tone Muscle Tone WNL Yes M6 PT-IP Treatment Start: 01/30/22 12:14 Freq: NEEDED Status: Active Protocol: Document 01/31/22 09:20 SP (Rec: 01/31/22 13:11 SP [id number]) Physical Therapy Treatment Exercises Exercises Ankle Pumps,Gluteal Sets,Quad Sets,Heel Slides Knee ROM Measurement L knee flexion approx 90 deg AROM during HS Education Education Provided Precautions,Weight Bearing Status,Safety M7 PT-IP Assessment and Plan Start: 01/30/22 12:14 Freq: NEEDED Status: Active Protocol: Document 01/31/22 09:20 SP (Rec: 01/31/22 13:11 SP [id number]) PT Summary Assessment and Plan Potential Rehabilitation Potential Fair Status of Condition at Evaluation Evolving Summary Impairments Pain,ROM,Strength,Balance, Coordination,Sensation,Tone, Cognition,Bed Mobility, Transfers,Gait,Activity Tolerance Progress Towards Goals Progressing Toward Goals,Slow Progress due to Activity Tolerance,Slow Progress - Other Assessment Summary Pt recalled 3/3 precauctions. supine<>sit SBA, STS CGA w/ FWW, gait sBA- CGA w/c follow and used decreased strength and activitiy tolerance 150 ft , completed stair mgt R HR/ SPC mod cues throughout tx for foot clearance, body closer to FWW, little narrower MACK for normalizing gait and proper patterning LEs on stairs. CGT with at 1400 for safety carryover for home. WIll assess progress. Pt is set up for outpt therapy next week. Goals Bed Mobility Goal Standby Assistance Transfer Goal Standby Assistance,Front Wheeled Walker Gait Goal Standby Assistance,Front Wheel Walker Gait Distance 100 Other Goals improve ambulation using FWW 150 ft SBA up/down 5 steps 1 rail SBA Days to Meet Goals 10 Frequency of Treatment Frequency Of Treatment Twice a Day Treatment Plan Physical Therapy Treatment Plan Bed Mobility Training,Transfer Training,Gait Training, Therapeutic Exercise,Balance Retraining,Post Op Education, Discharge Planning,Hot or Cold Pack,Neuromuscular Re-ed, Coordination Retraining,Manual Therapy Other Recommendations and Next Treatment caregiver training, stair Focus training 1400 today. Precautions Posterior Hip Precautions No Hip Flexion > 90 degrees,No Hip Internal Rotation,No Hip Adduction Weight Bearing Status Weight Bearing Status Weight Bear as Tolerated Allowed Weight Bearing Amount (enter % LLE WBAT or #) (%) Recommendations To Nursing Amount of Assist Needed Standby Assistance,1 Person Assist Discharge Recommendations PT Discharge Recommendations Home with Assistance,Home with 26/05 Assist Available, Outpatient PT Transportation Needs at Discharge Wheelchair/Cabulance,Stretcher /Ambulance
--- NOTE | 2022-01-31 10:29 | PC.NURSE ---
Addendum entered by Gloria Menjivar R.N. 01/31/22 14:50: Patient given discharge instructions to include pain management, medications, wound care, s/s of infection and f/u appointment. Both patient and verbalize understanding. Deny further questions or concerns. Patient's IV removed w/o complication. Patient tolerated. Patient discharged via wheelchair with aide assist. Belongings, including cane with patient. Original Note: Patient OOB this AM with aide and RN, able to transfer with 1p assist using gait belt and FWW to restroom without complication. Patient denies pain while at rest, reports 4-5 pain while mobile, Tylenol is effective in controlling her pain at this time. Patient up to chair. VSS. Remains saline locked. Lungs CTA, on room air. Left hip dressing CDI, prior hemovac dsg CDI. LLE CMS intact bilaterally. SCD's removed for activity and reapplied when back to bed. Patient remains saline locked. Eating, drinking and voiding without complications. 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 Patient denies further needs at this time. Call light and belongings in reach.
--- NOTE | 2022-01-31 11:40 | CM.DPNOTE ---
Discharge Planning Note: Patient is medically cleared for discharge. PT evaluated and indicated patient is able to discharge to home with assistance of spouse and attend to ongoing PT needs as outpatient. PT provider waiting on spouse to arrive for coaching prior to discharge occurring. Patient's spouse providing transportation via POV. No other discharge planning needs identified. [place] [facility]
[2022-01-31] MEDS: LORATADINE 10 MG TABLET PO (12:36)
--- NOTE | 2022-01-31 14:15 | PT.IPTN ---
Current Diagnoses Unilateral primary osteoarthritis, left hip (01/31/22) Surgery Performed Operation Date: 01/29/22 10:30 Actual Procedures p Total Hip Arthroplasty(Left) - Sharda Madera MD Physical Therapy Treatment Note M2 PT-IP Current Condition Start: 01/30/22 12:14 Freq: NEEDED Status: Discharge Protocol: Document 01/31/22 14:01 SP (Rec: 01/31/22 15:39 SP [id number]) Physical Therapy Current Condition Current Condition Evaluation Date 01/30/22 Treatment Diagnosis s/p L ANDI posterior approach; difficulty in walking Onset Date 01/29/22 M3 PT-IP Subjective Start: 01/30/22 12:14 Freq: NEEDED Status: Discharge Protocol: Document 01/31/22 14:01 SP (Rec: 01/31/22 15:39 SP [id number]) Subjective Physical Therapy Visit Type Type Treatment Note Visit Start Time 14:01 Visit Stop Time 14:15 Total Visit Minutes 14 Notes completed CGT and provided assist required for and throughout mobilty. 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 Physical Therapy Visit Comments Patient Comments agreeable to do PT Therapy Pain Assessment Pain When Pain Assessed At Rest Pain Present Pain Present Pain Reported Location Right Hip Intensity 4 Scale Used Numeric (0 - 10) Description With Movement Pain Behaviors Facial Grimacing Pain Management Techniques Distraction,Modification of Treatment,Re-positioning, Timing of Activity with Medications M4 PT-IP Mobility and Gait Start: 01/30/22 12:14 Freq: NEEDED Status: Discharge Protocol: Document 01/31/22 14:01 SP (Rec: 01/31/22 15:39 SP [id number]) PT-Transfer Assessment Sit to and From Stand Sit to and from Stand Standby Assistance,Contact Guard Assistance,Use of Upper Extremities Equipment Transfer Assistive Device Gait Belt,Front Wheeled Walker Orthotic/Prosthetic Devices or Brace: No Transfers Transfer Destination Chair Transfer Technique pt ambulated using FWW Transfer Ability Level of Assist Standby Assistance,Contact Guard Assistance,Use of Upper Extremities Comments Mobility Comments Pt up in chair dressed in street clothes when arrived. donned gait belt,with cues as needed. Sit>Stand CGA, cues for LLE positioned out front for maintain precautions. Progressed gait into hallway to stairs, completed stairs and back to room approx 230 ft w/ FWW, cGA- SBA. Pt returned to chair when back in room. Notified nursing progress in tx, ok to return home with assist her when medically cleared. Pt is already set up with outpt therapy and good understanding of post-op HEP and importance of mobiltiy. Gait Assessment Gait Gait Assistance Required: Standby Assistance,Contact Guard Assist Distance (Feet) 230 Able to Maintain Weight Bearing Status Yes During Gait Assistive Devices Assistive Device Gait Belt,Front Wheeled Walker Orthotic/Prosthetic Devices or Brace: No Gait Deviations General Gait Pattern Antalgic,Flexed Trunk,Wide Based Gait Factors Limiting Gait Function Factors Limiting Gait Function Decreased Activity Tolerance, Decreased Strength,Difficulty Following Directions,Limited Range of Motion,Pain,Poor Safety Awareness Comments Gait Comments Occasional cues for taller posture into FWW near back legs, decrease MACK and knee alignment over toes to decrease slight valgus on L during WB. Stair Climbing Assessment Evaluation Level of Assist On Stairs Contact Guard Assistance,1 Person Assistance Devices Stair Climbing Assistive Devices Straight Cane,Right Railing Technique/Endurance Stair Climbing Direction Ascend and Descend Stair Climbing Technique Step to Step Number of Steps Climbed 3 Stair Climbing Set # Repetitions (reps) 2 Comments Stair Climbing Comments Cue x1 for positioning and contact rail self, cue x1 and self correct x3 descend with LLE . PT-Balance Assessment Sitting Balance and Reactions Static Sitting Balance Ability Normal Dynamic Sitting Balance Ability Normal Standing Balance and Reactions Static Standing Balance Ability Good Dynamic Standing Balance Ability Good Device Used FWW M5 PT-IP Objective Assessments Start: 01/30/22 12:14 Freq: NEEDED Status: Discharge Protocol: Document 01/30/22 09:35 AB (Rec: 01/30/22 12:29 AB [id number]) Orientation Orientation/Cognition Level of Alertness Confusional State Orientation Name,Place,Situation Language Function Ability No Deficits Noted Safety Awareness Decreased Safety Awareness Memory Description Short Term Impaired,Skilled Nursing Impaired Gross Range of Motion Lower Extremity ROM Assessment Within Functional Limits Strength Lower Extremity Strength Assessment Left Impaired Hip 3-/5 Knee 3+/5 Sensation Assessment Sensation Gross Sensation Left LE Impaired Comments Sensation Comments pt stated that LLE still feels a little numb and weak Muscle Tone Muscle Tone WNL Yes M6 PT-IP Treatment Start: 01/30/22 12:14 Freq: NEEDED Status: Discharge Protocol: Document 01/31/22 14:01 SP (Rec: 01/31/22 15:39 SP [id number]) Physical Therapy Treatment Education Education Provided Precautions,Safety M7 PT-IP Assessment and Plan Start: 01/30/22 12:14 Freq: NEEDED Status: Discharge Protocol: Document 01/31/22 14:01 SP (Rec: 01/31/22 15:39 SP [id number]) PT Summary Assessment and Plan Potential Rehabilitation Potential Fair Status of Condition at Evaluation Evolving Summary Impairments Pain,ROM,Strength,Balance, Coordination,Sensation,Tone, Cognition,Bed Mobility, Transfers,Gait,Activity Tolerance Progress Towards Goals Progressing Toward Goals,Slow Progress due to Activity Tolerance Assessment Summary Pt CG- SBA during mobility using fWW, CGA during stair mgt. Cues as needed for LLE alignment to decrease slight valgus. Pt is ok to return home with to assist her when medically cleared. Pt is set up with outpt therapy, understands to continue post- op ex as HEP and importance of mobiltiy, discussed scar mobility if needed after incision fully healed. Goals Bed Mobility Goal Standby Assistance Transfer Goal Standby Assistance,Front Wheeled Walker Gait Goal Standby Assistance,Front Wheel Walker Gait Distance 100 Other Goals improve ambulation using FWW 150 ft SBA up/down 5 steps 1 rail SBA Days to Meet Goals 10 Frequency of Treatment Frequency Of Treatment Twice a Day Treatment Plan Physical Therapy Treatment Plan Bed Mobility Training,Transfer Training,Gait Training, Therapeutic Exercise,Balance Retraining,Post Op Education, Discharge Planning,Hot or Cold Pack,Neuromuscular Re-ed, Coordination Retraining,Manual Therapy Other Recommendations and Next Treatment Gait phases w/ FWW and L knee Focus alignment, post op ex, standing balance. Precautions Posterior Hip Precautions No Hip Flexion > 90 degrees,No Hip Internal Rotation,No Hip Adduction Other Precautions recalled 3/3 precautions, reminded during pivoting small steps to maintain no hip IR. Weight Bearing Status Weight Bearing Status Weight Bear as Tolerated Allowed Weight Bearing Amount (enter % LLE WBAT or #) (%) Recommendations To Nursing Amount of Assist Needed Standby Assistance,1 Person Assist Discharge Recommendations PT Discharge Recommendations Home with Assistance, Outpatient PT Transportation Needs at Discharge Private Vehicle
== END 2022-01-31 14:35 | disposition home or self-care (01) ==
LOC: OR 08:00 → AC 08:00
PROVIDERS: Admitting Provider Orthopaedic Surgery; Family Provider Nurse Practitioner Gerontology; PCP Family Medicine; Referring Provider Orthopaedic Surgery; Visit Provider Orthopaedic Surgery
PROC: 0SRB0JZ Replacement of Left Hip Joint with Synthetic Substitute, Open Approach (ICD-10-PCS; CPT 27130; principal; 2022-01-29 10:30)
DX: M16.12 Unilateral primary osteoarthritis, left hip (principal); M87.88 Other osteonecrosis, other site; I10 Essential (primary) hypertension; I48.20 Chronic atrial fibrillation, unspecified
CPT/HCPCS: 27130; 36415; 72170; 73502; 85014; 85018; 85610; 97116; 97162; 97530; C1776; G0378; C9290; J0171; J0690; J2250; J2704; J3010

== ENCOUNTER → 2022-02-06 09:32 | Outpatient (CLI) | payer MEDICARE, OTHER, SELFPAY ==
[2022-01-29 14:50] VITALS: BMI 32.1
--- NOTE | 2022-02-06 | DI.US.S_ITS ---
PROCEDURE: US PERIPH VENOUS LOW EXTREM BI INDICATIONS: EDEMA 1 WEEK POST LEFT HIP REPLACEMENT TECHNIQUE: Real-time imaging, as well as color and pulse Doppler interrogation, were performed of the deep veins of both legs from the inguinal ligament to the popliteal fossa. COMPARISON: None. FINDINGS: Right: The common femoral, femoral and popliteal veins are normally compressible, and free of intraluminal thrombus. Color and pulse Doppler demonstrate normal phasic intravascular flow. There is normal augmentation response to distal compression maneuver. Left: The common femoral, femoral and popliteal veins are normally compressible, and free of intraluminal thrombus. Color and pulse Doppler demonstrate normal phasic intravascular flow. There is normal augmentation response to distal compression maneuver. Left lower extremity edema is noted. IMPRESSION: No evidence of DVT. Dictated by: Niels Solis M.D. on 02/06/2022 at 10:36 Approved by: Niels Solis M.D. on 02/06/2022 at 10:37
[2022-02-06 12:10] LABS: Add Manual Diff / Slide Review NO; Basophils Absolute Auto 0 /uL (0-100); Basophils Percent Auto 0.4 % (0-2); Eosinophils Absolute Auto 200 /uL (0-450); Eosinophils Percent Auto 2.5 % (2-4); Hematocrit 23.3 % (36-46); Hemoglobin 8.2 g/dL (12.0-16.0); Lymphocytes Absolute Auto 1600 /uL (1100-4500); Lymphocytes Percent Auto 22.1 % (25-40); Mean Corpuscular HGB Conc 35.1 % (30-36); Mean Corpuscular Hemoglobin 33.4 PG (26-34); Mean Corpuscular Volume 95.4 fL (80-100); Monocytes Absolute Auto 800 /uL (0-900); Monocytes Percent Auto 10.6 % (3-14); Neutrophils Absolute Auto 4700 /uL (1500-7000); Neutrophils Percent Auto 64.4 % (50-75); Platelet Count 229 X10^3/uL (150-400); Red Blood Cell Count 2.44 X10^6/uL (4.0-5.2); Red Cell Distribution Width 12.9 % (11.6-14.8); White Blood Cell Count 7.3 X10^3/uL (4.5-11.0)
[2022-02-06 12:16] LABS: INR 2.1 (0.9-1.3)
[2022-02-06 12:19] LABS: PTT Partial Thromboplastin Tim 45 SECONDS (26.4-36.2)
[2022-02-06 12:38] LABS: BUN Creatinine Ratio 28.6 (6-22); Blood Urea Nitrogen 16 mg/dL (7-17); Carbon Dioxide 27 mmol/L (22-32); Chloride 95 mmol/L (98-107); Estimated Glomerular Filt Rate > 60.0 mL/min (>60); Glucose 104 mg/dL (80-110); HEMOLYSIS < 15 (0-50); Potassium 4.5 mmol/L (3.4-5.1); Sodium 128 mmol/L (137-145)
== END ==
PROVIDERS: Family Provider Nurse Practitioner Gerontology; PCP Family Medicine; Referring Provider Orthopaedic Surgery; Visit Provider Orthopaedic Surgery
DX: Z96.642 Presence of left artificial hip joint (principal); M16.12 Unilateral primary osteoarthritis, left hip; R22.43 Localized swelling, mass and lump, lower limb, bilateral
CPT/HCPCS: 36415; 80048; 85025; 85610; 85730; 93970

== ENCOUNTER → 2022-02-11 16:13 | Outpatient (CLI) | payer MEDICARE, OTHER, SELFPAY ==
[2022-01-29 14:50] VITALS: BMI 32.1
--- NOTE | 2022-02-11 | DI.CT.S_ITS ---
PROCEDURE: CT ANGIO CHEST PE PROTOCOL INDICATIONS: POST ANDI LEFT, SHORTNESS OF BREATH TECHNIQUE: After the administration of intravenous contrast, 2 mm thick sections acquired from the pulmonary apices to the posterior costophrenic angles. 3-dimensional maximum intensity projection (MIP) coronal and sagittal reformats were then acquired through the thorax. For radiation dose reduction, the following was used: automated exposure control, adjustment of mA and/or kV according to patient size. COMPARISON: None. FINDINGS: Image quality: Excellent. Pulmonary arteries: Pulmonary arteries are normal in size, and demonstrate no intraluminal filling defects to suggest central pulmonary embolism. Lungs and pleura: Minimal bibasilar paraseptal thickening, possibly representing very early interstitial pulmonary edema. Trace bilateral pleural effusions. No focal infiltrates.. Central and peripheral airways are patent. Mediastinum: Heart size is normal, without pericardial effusion. Moderate coronary artery calcifications. No mediastinal or hilar adenopathy. Thoracic aorta is normal in caliber and enhancement. Esophagus is normal in caliber, without hiatal hernia. Bones and chest wall: No suspicious bony lesions. Old lower thoracic compression. Ribs and thoracic spine appear intact throughout. Thyroid gland is unremarkable. No axillary or supraclavicular adenopathy. Abdomen: Visualized upper abdominal solid organs appear normal in the early arterial phase of enhancement. IMPRESSION: 1. No evidence acute pulmonary emboli. 2. Moderate coronary artery calcifications. 3. Question minimal congestive heart failure. Dictated by: Aj Pulido M.D. on 02/11/2022 at 16:57 Approved by: Aj Pulido M.D. on 02/11/2022 at 17:02
== END ==
PROVIDERS: Family Provider Nurse Practitioner Gerontology; PCP Family Medicine; Referring Provider Physician Assistant; Visit Provider Physician Assistant
DX: R06.02 Shortness of breath (principal); I25.10 Atherosclerotic heart disease of native coronary artery without angina pectoris; Z96.641 Presence of right artificial hip joint
CPT/HCPCS: 71275; Q9967

== ENCOUNTER 2024-12-07 13:50 | Outpatient (CLI) | payer MEDICARE, OTHER, SELFPAY ==
[2024-05-24 09:50] VITALS: BMI 32.1
[2024-12-07] VITALS (12 sets, daily range): BP systolic 134–188; BP diastolic 70–96; PULSE 56–79; RESP 14–18; TEMP 36.2; O2SAT 97–100
--- NOTE | 2024-12-07 13:55 | DI.RAD.S_ITS ---
PROCEDURE: PAIN L/S TRANSFORAM INJECT JAI COMPARISON: None. INDICATIONS: Bilateral L4/5 TFESI FINDINGS: Intra procedural examination demonstrating appropriate positions of the needles. Bilateral L4-5 levels. IMPRESSION: Intra procedural examination demonstrating appropriate positions of the needles. Dictated by: Archie Ramírez M.D. on 12/07/2024 at 16:42 Approved by: Archie Ramírez M.D. on 12/07/2024 at 16:43
[2024-12-07] MEDS: MIDAZOLAM 2 MG/2 ML VIAL IV (14:45)
[2024-12-07] MEDS: BUPIVACAINE 0.25% (PF) VIAL 2 ML INJ (14:51)
[2024-12-07] MEDS: DEXAMETHASONE 10 MG/ML VIAL 20 MG INJ (14:51)
[2024-12-07] MEDS: BETAMETHASONE 30 MG/5 ML MDV 12 MG INJ (14:54)
[2024-12-07] MEDS: iopamidoL 15 ML VIAL 3 ML INJ (14:54)
[2024-12-07] MEDS: MIDAZOLAM 2 MG/2 ML VIAL 1 MG IV (15:10)
[2024-12-07] MEDS: BETAMETHASONE 30 MG/5 ML MDV 6 MG INJ (15:19)
--- NOTE | 2024-12-07 15:28 | PM.PROC.IR.1 ---
Date/Time/Diagnoses Date of procedure: 12/07/24 Time of procedure: 15:28 Pre-procedure diagnosis: 1. FORAMINAL STENOSIS WITH LE SYMPTOMS Procedure Notes Procedure: 1. FLUOROSCOPICALLY GUIDED CONTRAST CONTROLLED TRANSFORAMINAL EPIDURAL STEROID INJECTION - BILATERAL L4/5 TFESI Indications: Junie is referred by for treatment of Foraminal Stenosis with bilateral LE Symptoms Physician: Kendall Valentine Total Fluoroscopy time (seconds): 35 Total sedation minutes: 35 Complications: none Procedure in detail & Post-procedure care: FINDINGS Foraminal Nerve Root Compression secondary to disc disease and facet hypertrophy DESCRIPTION OF PROCEDURE Following review of allergy and review of potential side effects and complications, including, but not necessarily limited to, infection, allergic reaction, local tissue breakdown, stroke, temporary or permanent nerve injury, paralysis, and possible , the patient indicated that the patient understood and agreed to proceed. An informed consent document was signed by the patient, witnessed by a nurse, and placed in the patient's chart. Additionally, other treatment options including medications, modalities, and physical therapy were reviewed with the patient. After review of previous anaesthesic history and IV conscious sedation the patient was deemed safe to proceed with today?s procedure with IV conscious sedation as ASA class II designation. Safety time-out was performed to confirm patient ID, procedure to be performed and site of procedure. IV sedation was accomplished with a combination of 3mg of Versed was administered by the RN after DO order, titrated to patient comfort during the course of the procedure while the patient remained responsive to all verbal commands In the prone position following sterile prep and drape of the lumbar region, the right L4/5 posterior neuroforamen was identified fluoroscopically. The skin was anesthetized via a 25-gauge 1.5-inch needle with 1% lidocaine solution. At this point, a 25-gauge 3.5-inch spinal needle was atraumatically introduced and advanced under fluoroscopic guidance through the posterior right L4/5 neuroforamen to approximately the anterior aspect of the canal. Depth was confirmed on lateral view. Following negative aspiration, injection of approximately 1.5cc of Isovue 200 under live fluoroscopy in the AP view confirmed excellent flow along the nerve root, into the epidural space without vascular or intrathecal uptake observed Radiological data, including multiple fluoroscopic views of the lumbosacral spine, reveal a spinal needle at the right L4/5 posterior neuroforamen. Subsequent views show flow of contrast material flowing superiorly and inferiorly along the nerve root confirming epidural flow. Subsequently, a test dose of 1.5cc of 1% lidocaine solution was administered and patient was observed for two minutes for signs or symptoms of complications, including abdominal pain, shortness of breath, bilateral upper or lower extremity weakness, nausea and vomiting, prior to steroid injection. At this point, a total of 2cc or 10mg of dexamethasone and 6mg betamethasone was injected without incident. Attention was then refocused to the left L4/5 level where the identical procedure was replicated. The procedure tolerated the procedure well without signs or symptoms of complications prior to transfer to the recovery area continued monitoring without incident. The patient was then transferred to the recovery area where they were observed for an appropriate time after the injection. The patient reported a VAS score of 7 prior to the procedure and a post-procedure VAS of 0. POST OP INSTRUCTIONS The patient was provided a Pain Log to continue to record their response to the target-specific procedure prior to follow-up visit with their referring physician. Additionally, specific post-injection care instructions and a contact number to our office were provided if concerns arise regarding possible complications associated with the procedure are suspected.
== END 2024-12-07 15:49 | disposition home or self-care (01) ==
LOC: RAD 13:54
PROVIDERS: Family Provider Nurse Practitioner Gerontology; PCP Family Medicine; Referring Provider Physical Medicine & Rehabilitation; Visit Provider Physical Medicine & Rehabilitation
DX: M48.061 Spinal stenosis, lumbar region without neurogenic claudication (principal); M51.16 Intervertebral disc disorders with radiculopathy, lumbar region; M47.26 Other spondylosis with radiculopathy, lumbar region
CPT/HCPCS: 64483; 99152; 99153; J0702; J1100; J2250; J3490

== ENCOUNTER 2025-05-05 13:51 | Outpatient (CLI) | payer MEDICARE, OTHER, SELFPAY ==
[2024-05-24 09:50] VITALS: BMI 32.1
[2025-05-05] VITALS (9 sets, daily range): BP systolic 140–198; BP diastolic 77–101; PULSE 66–84; RESP 14–22; TEMP 36.1; O2SAT 96–99
--- NOTE | 2025-05-05 14:38 | DI.RAD.S_ITS ---
PROCEDURE: PAIN L/SI FACET INJ/BLK 1STL INDICATIONS: Right L4-5 and S1 medial branch block long-acting COMPARISON: None. FINDINGS/IMPRESSION: Fluoroscopic spot filming was performed to verify placement of spinal needles at the right L4, L5, and S1 medial branch level(s), as labeled on the films. Appropriate location(s) of the needle tip(s) was confirmed by injection of iodinated contrast. Dictated by: Aj Pulido M.D. on 05/06/2025 at 10:22 Approved by: Aj Pulido M.D. on 05/06/2025 at 10:23
[2025-05-05] MEDS: MIDAZOLAM 2 MG/2 ML VIAL IV (15:18)
[2025-05-05] MEDS: MIDAZOLAM 2 MG/2 ML VIAL 1 MG IV (15:24)
[2025-05-05] MEDS: BUPIVACAINE 0.5% (PF) 10 ML VIAL 2 ML INJ (15:26)
[2025-05-05] MEDS: LIDOCAINE 1% 20 ML 3 ML INJ (15:28)
--- NOTE | 2025-05-05 15:39 | PM.PROC.IR.1 ---
Date/Time/Diagnoses Date of procedure: 05/05/25 Time of procedure: 15:39 Pre-procedure diagnosis: 1. FACET ARTHROPATHY Post-procedure diagnosis: same Procedure Notes Procedure: 1. Right L4, L5 and S1 MB BLOCKS LA Indications: Junie is referred by Dr. Hayes for treatment of Right Axial LBP. Physician: Kendall Valentine Total Fluoroscopy time (seconds): 12 Total sedation minutes: 15 Complications: none Procedure in detail & Post-procedure care: DESCRIPTION OF PROCEDURE Fluoroscopically guided, contrast-controlled right L4, L5 and S1 medial branch blocks with 0.5cc of 0.5% Marcaine. Following review of allergy and review of potential side effects and complications, including, but not necessarily limited to, infection, allergic reaction, local tissue breakdown, nerve injury, paralysis, stroke and possible , the patient indicated that the patient understood and agreed to proceed. An informed consent document was signed by the patient, witnessed by a nurse, and placed in the patient's chart. After review of previous anaesthesic history and IV conscious sedation the patient was deemed safe to proceed with today?s procedure with IV conscious sedation as ASA class II designation. Safety time-out was performed to confirm patient ID, procedure to be performed and site of procedure. IV sedation was accomplished with a combination of 3mg of Versed was administered by the RN after DO order, titrated to patient comfort during the course of the procedure while the patient remained responsive to all verbal commands In the prone position, following sterile prep and drape of the lumbar region, the right L4, L5 and S1 anatomical location of the medial branch of the dorsal ramus was identified fluoroscopically. Subsequently an anesthetic skin wheal using 1% lidocaine solution was initiated at each of the anatomical spots. Subsequently then a 22-gauge 3.5-inch spinal needle was atraumatically introduced and advanced under fluoroscopic guidance at each of the corresponding sites at the right L4, L5 and S1 MB. After negative aspiration, 0.2 cc of Isovue 200 was injected, confirming placement without vascular or intrathecal uptake. Subsequently then 0.5 cc of 0.5% Marcaine solution was injected at each of the corresponding sites at the right L4, L5 and S1 medial branch locations. The patient tolerated the procedure well without signs or symptoms of complications. The procedure tolerated the procedure well without signs or symptoms of complications prior to transfer to the recovery area continued monitoring without incident. Post-procedure, the patient was monitored initiating provocative activities to measure the amount of relief from block of the facetogenic pain. The patient reported a VAS of 7 prior to the procedure and a post-procedure VAS of 1. It has been a pleasure to assist in the diagnostic and therapeutic care of your patient. POST OP INSTRUCTIONS The patient was provided with a Pain Log to complete over the next several hours and subsequent days prior to the patient's follow up with the ordering physician. If the patient has digital computer systems analyst relief to the solution applied, then they may be a candidate for medial branch rhizotomy. The patient is aware, was provided, once again, with a Pain Log and will follow up with the referring physician for review and clinical correlation.
== END 2025-05-05 16:00 | disposition home or self-care (01) ==
LOC: RAD 13:52
PROVIDERS: PCP Family Medicine; Referring Provider Family Medicine; Visit Provider Physical Medicine & Rehabilitation
DX: M47.816 Spondylosis without myelopathy or radiculopathy, lumbar region (principal); M47.817 Spondylosis without myelopathy or radiculopathy, lumbosacral region
CPT/HCPCS: 64493; 64494; 99152; J2250